=== PATIENT | female | born 1940 | race Two or more races ===

== ENCOUNTER → 2016-09-26 | Outpatient (CLI) | payer MEDICARE, OTHER ==
[~2016-09-26] MED LIST: ALBU8.5H3 INH; ASPI81TA3 PO; ATOR20TA38 PO; BENA10TA48 PO; DULO30CA45 PO; HUM100VI8 SQ; INSU100C SC; ISOS30TA5 PO; METF500T4 PO; METO25TA7 PO; METO5TAB11 PO; PANT40TA4 PO; TICA90TA PO
--- NOTE | 2016-09-26 13:02 | RADRPT ---
PROCEDURE: Retroperitoneal US. CLINICAL INDICATION: Hematuria TECHNIQUE: Multiple sonographic images of the kidneys and retroperitoneum were obtained. The imag es were reviewed on a PACS workstation. COMPARISON: 01/30/16 FINDINGS: The kidneys are normal in size, contour, cortical thickness and cortical echogenicity. The right kidney measures 11.8 cm. The left kidney measures 10.1 cm. There is a 4.9 x 4.5 cm simple cyst in the right kidney. No kidney stones are visualized. There is no evidence for hydronephrosis. The urinary bladder is normal. RPTAT: AA IMPRESSION: Simple cyst in the right kidney. No evidence of hydronephrosis. .Bobby Francois MD, MD Date Time Electronically viewed and signed by .Bobby Francois MD, MD on 09/26/2016 13:02 .S/
--- NOTE | 2016-09-26 16:21 | RADRPT ---
PROCEDURE: XR Knees. CLINICAL INDICATION: Bilateral knee pain. TECHNIQUE: Total of six views. Frontal, oblique, and lateral views of both knees. COMPARISON: No prior study is available for comparison. FINDINGS: There is no fracture or dislocation. The soft tissues are normal. There are degenerative changes with osteophytes arising from all 3 joint compartment margins bilater ally. There is bilateral medial joint compartment narrowing with left worse than right. There is no lytic or blastic lesion. There is no radiopaque foreign body. IMPRESSION: 1. Moderate degenerative changes of both knees with left worse than right. 2. No acute abnormality. RPTAT: QQ .Costa Salinas MD, MD Date Time Electronically viewed and signed by .Costa Salinas MD, MD on 09/26/2016 16:20 .R/
== END | disposition home or self-care (01) ==
LOC: U/S 12:18
PROVIDERS: ATTEND Internal Medicine Nephrology
DX: M25.561 Pain in right knee (principal); M25.562 Pain in left knee; R31.9 Hematuria, unspecified
CPT/HCPCS: 76775

== ENCOUNTER → 2017-01-21 | Outpatient (CLI) | payer MEDICARE, OTHER ==
[2017-01-21 13:28] LABS: BASOPHILS % 0.5 % (0.0-2.0); EOSINOPHILS # 0.2 10^3/ul (0.0-0.5); EOSINOPHILS % 2.3 % (0.0-7.0); HEMATOCRIT 39.4 % (37.0-47.0); HEMOGLOBIN 13.1 g/dl (12.0-16.0); LYMPHOCYTES # 2.1 10^3/ul (0.8-2.9); MEAN CORPUSCULAR HEMOGLOBIN 30.3 pg (29.0-33.0); MEAN CORPUSCULAR HGB CONC 33.2 g/dl (32.0-37.0); MONOCYTE # 0.3 10^3/ul (0.3-0.9); MONOCYTES % 4.1 % (0.0-11.0); NEUTROPHILS % 67.9 % (39.0-77.0); PLATELET COUNT 258 10^3/UL (140-415); RED BLOOD COUNT 4.33 10^6/ul (4.20-5.40); WHITE BLOOD COUNT 8.4 10^3/ul (4.8-10.8)
[2017-01-21 13:31] LABS: ADD UMIC NO; UR ASCORBIC ACID NEGATIVE (NEGATIVE); UR BILIRUBIN (Dip) NEGATIVE (NEGATIVE); UR BLOOD (Dip) NEGATIVE (NEGATIVE); UR CLARITY CLEAR (CLEAR); UR COLOR YELLOW (YELLOW); UR GLUCOSE (Dip) 1+ mg/dL (NEGATIVE); UR KETONES (Dip) NEGATIVE (NEGATIVE); UR LEUKOCYTE ESTERASE (Dip) NEGATIVE Leu/ul (NEGATIVE); UR NITRITE (Dip) NEGATIVE (NEGATIVE); UR TOTAL PROTEIN (Dip) NEGATIVE (NEGATIVE); UR UROBILINOGEN (Dip) NEGATIVE (NEGATIVE)
[2017-01-21 13:55] LABS: ALBUMIN 4.2 g/dl (3.3-4.9); ALBUMIN/GLOBULIN RATIO 1.31; BILIRUBIN,INDIRECT 0.7 mg/dl (0-1.1); BILIRUBIN,TOTAL 0.7 mg/dl (0.2-1.3); CALCIUM 9.5 mg/dl (8.4-10.2); CREATININE 0.61 mg/dl (0.44-1.00); POTASSIUM 4.5 mmol/L (3.5-5.1); TOTAL PROTEIN 7.4 g/dl (6.1-8.1)
== END | disposition home or self-care (01) ==
LOC: LAB 12:42
PROVIDERS: ATTEND Internal Medicine
DX: I10 Essential (primary) hypertension (principal); E11.9 Type 2 diabetes mellitus without complications; N39.0 Urinary tract infection, site not specified
CPT/HCPCS: 80053; 81003; 83036; 85025; 87086

== ENCOUNTER 2017-02-07 10:07 | Emergency (ER) | payer MEDICARE, OTHER ==
[~2017-02-07] VITALS: Ht 157.5 cm; Wt 66.0 kg
[~2017-02-07 10:07] MED LIST changes: +METO-335 PO; -METO25TA7 PO
[2017-02-07 10:11] VITALS: Ht 157.5 cm; Wt 66.0 kg
[2017-02-07 14:28] VITALS: TEMP 98.5
--- NOTE | 2017-02-07 14:47 | ERA ---
ER Documentation Chief Complaint Date/Time DATE: 02/07/17 TIME: 14:46 Chief Complaint Complains of chest pain since this pain HPI 77-year-old woman presents with chest discomfort 1 month. She states the discomfort is sometimes sharp sometimes pressure-like usually associated with "stress", which she states is caused by issues with her . She states he does not care about her issues and because of this feels anxious and stressed out. She states her symptoms are usually exacerbated by arguments or issues with her and have been going on for the last month. She denies chest pain at rest, no shortness of breath, no calf or leg swelling, no fevers or chills, no vomiting or diarrhea. Patient also complains of insomnia despite using zolpidem nightly ROS All systems reviewed and are negative except as per history of present illness. Medications Home Meds Active Scripts Metoclopramide Hcl* (Metoclopramide Hcl*) 5 Mg Tablet, 5 MG PO BEFORE MEALS for 30 Days, TAB Prov:ROLF BAILEY 01/31/16 Pantoprazole* (Pantoprazole*) 40 Mg Tablet.dr, 40 MG PO BID@06,18 for 30 Days Prov:ROLF BAILEY 01/31/16 Metoprolol Succinate* (Toprol XL*) 25 Mg Tab.sr.24h, 25 MG PO DAILY for CAD, HTN , #90 TAB Prov:MARINE CORRAL MD 02/14/15 Ticagrelor* (Brilinta*) 90 Mg Tablet, 90 MG PO BID, #60 Prov:MARINE CORRAL MD 02/14/15 Isosorbide Mononitrate* (Isosorbide Mononitrate*) 30 Mg Tabsr, 30 MG PO DAILY for Coronary artery disesae, HTN, #90 TAB Prov:MARINE CORRAL MD 02/14/15 Reported Medications Albuterol Sulfate* (Proair HFA*) 8.5 Gm Hfa.aer.ad, 2 PUFF INH Q4, #1 INHALER 01/26/16 Benazepril Hcl* (Benazepril Hcl*) 10 Mg Tablet, 10 MG PO DAILY, #30 TAB 01/26/16 Atorvastatin Calcium* (Atorvastatin Calcium*) 20 Mg Tablet, 20 MG PO QHS, #30 TAB 01/26/16 Metformin Hcl* (Metformin Hcl*) 500 Mg Tablet, 500 MG PO TID, TAB 09/26/14 Insulin Lispro (Humalog) 100 U/Ml Cartridge, 6 UNITS SC BID, EA 09/26/14 Hum Insulin Nph/Reg Insulin Hm (Humulin 70-30 Vial) 100 Units/Ml Vial, 16 SQ BID , VIAL 09/26/14 Aspirin (Aspirin) 81 Mg Chew, 81 MG PO DAILY 01/05/13 Duloxetine Hcl* (Cymbalta*) 30 Mg Capsule.dr, 30 MG PO BID 01/05/13 Allergies Allergies: Coded Allergies: No Known Allergy (Unverified , 01/26/16) PMhx/Soc Left ventricular ejection fraction of 70%, esophagitis gastritis, GERD, COPD, CAD status post mid left circumflex coronary artery stent, hyperlipidemia, hypertension, diabetes mellitus, depression History of Surgery: Yes (HYSTERECTOMY 4 YEARS AGO,STENT X2) Anesthesia Reaction: No Hx Neurological Disorder: No Hx Respiratory Disorders: Yes (ASTHMA,PNA,BRONCHITIS) Hx Cardiac Disorders: Yes (STENT PLACEMENT X2,HTN,CAD) Hx Psychiatric Problems: No Hx Miscellaneous Medical Probl: Yes (SHINGLES,VERTIGO,TENOSYNOVITIS, LT BUTTOCKS LECERATION REPAIR 12/25) Hx Alcohol Use: No Hx Substance Use: No Hx Tobacco Use: No Smoking Status: Never smoker Physical Exam Vitals Vital Signs Date Time Temp Pulse Resp B/P Pulse Ox O2 Delivery O2 Flow Rate FiO2 02/07/17 16:48 73 15 127/63 100 Room Air 02/07/17 14:28 98.5 72 18 147/62 99 Room Air 02/07/17 10:11 98.4 84 20 141/64 99 Physical Exam GENERAL: Well-developed, well-nourished, well-hydrated, in no apparent distress , looks nontoxic in appearance HEENT: Moist mucous membranes, pink conjunctiva, no cervical spine tenderness or step-off deformities, no goiter, no jaundice or icterus, extraocular movements intact without pain. No submandibular induration, and no pharyngeal erythema NEURO: Alert and oriented 3, cranial nerves II through XII intact bilaterally, pupils equal round reactive to light, no focal deficits or facial asymmetry, sensation intact distally Strength 5/5 in upper and lower extremities bilaterally CARDIAC: Regular rate and rhythm, no murmurs rubs or gallops LUNGS: Clear bilaterally no wheezing crackles or stridor ABDOMEN: Soft nontender, no guarding, no rigidity, no rebound, no psoas sign no obturator sign. Normoactive bowel sounds SKIN: Warm and dry to touch, no abrasions, contusions, or hematomas, no lacerations, no ecchymosis, no target lesions, and without ulcers EXTREMITIES: No clubbing cyanosis or edema, calves are bilaterally symmetrical, no Homans sign, no popliteal cord sign. Distal pulses equal and bilateral PSYCH: Normal affect without agitation or irritability Result Diagram: 02/07/17 1440 02/07/17 1440 Results 24 hrs Laboratory Tests Test 02/07/17 14:40 White Blood Count 10.010^3/ul Red Blood Count 4.5910^6/ul Hemoglobin 13.8g/dl Hematocrit 41.8% Mean Corpuscular Volume 91.1fl Mean Corpuscular Hemoglobin 30.1pg Mean Corpuscular Hemoglobin Concent 33.0g/dl Red Cell Distribution Width 13.1% Platelet Count 81890^3/UL Mean Platelet Volume 9.3fl Neutrophils % 63.3% Lymphocytes % 29.5% Monocytes % 4.9% Eosinophils % 1.4% Basophils % 0.6% Nucleated Red Blood Cells % 0.0/100WBC Neutrophils # 6.310^3/ul Lymphocytes # 3.010^3/ul Monocytes # 0.510^3/ul Eosinophils # 0.110^3/ul Basophils # 0.110^3/ul Nucleated Red Blood Cells # 0.010^3/ul Prothrombin Time 12.4Sec Prothrombin Time Ratio 1.0 INR International Normalized Ratio 0.92 Sodium Level 142mmol/L Potassium Level 4.3mmol/L Chloride Level 102mmol/L Carbon Dioxide Level 31mmol/L Anion Gap 13 Blood Urea Nitrogen 11mg/dl Creatinine 0.63mg/dl Glucose Level 151mg/dl Calcium Level 9.8mg/dl Total Bilirubin 0.8mg/dl Direct Bilirubin 0.00mg/dl Indirect Bilirubin 0.8mg/dl Aspartate Amino Transf (AST/SGOT) 21IU/L Alanine Aminotransferase (ALT/SGPT) 42IU/L Alkaline Phosphatase 79IU/L Troponin I < 0.012ng/ml B-Type Natriuretic Peptide 56PG/ML Total Protein 8.0g/dl Albumin 4.7g/dl Globulin 3.30g/dl Albumin/Globulin Ratio 1.42 Lipase 144U/L Current Medications Medications (Trade) Dose Ordered Sig/Gena Route PRN Reason Start Time Stop Time Status Last Admin Dose Admin Ketorolac Tromethamine (Toradol) 15 mg ONCE STAT IV 02/07/17 15:24 02/07/17 15:26 DC 02/07/17 15:33 Alprazolam (Xanax) 1 mg ONCE ONCE PO 02/07/17 15:30 02/07/17 15:31 DC 02/07/17 15:33 Procedures/MDM IV line was established patient was placed on lunchroom monitor rhythm strip revealed a sinus rhythm at about 70 bpm with upright P and T waves. Patient was afebrile. EKG performed, read by me: 70 bpm, normal sinus rhythm, normal axis, no acute ST segment changes, narrow QRS complex, with good R-wave progression in precordial leads. One AP view of the chest performed, read by me reveals no acute infiltrates, normal mediastinum, sharp costophrenic and cardiac borders, no air under the diaphragm. Otherwise unremarkable chest x-ray. Administered Toradol 15 mg IV and alprazolam 1 mg p.o. for her symptoms. CBC and electrolytes were normal, liver function tests are normal, troponin was negative. Patient's symptoms do not sound cardiac despite having strong cardiac history, I recommended she follow-up with her PMD for continued outpatient management, shoe may be also require psychologist or marriage counselor evaluation. Differential diagnoses considered, included but not limited to acute coronary syndrome, pulmonary embolism, aortic dissection, abdominal aortic aneurysm, sepsis, stroke, meningitis, encephalitis, pneumonia, appendicitis, cholecystitis , bowel obstruction, pyelonephritis, nephrolithiasis, cystitis, as well as metabolic, hematologic, and electrolyte abnormalities. As well as abscess, cellulitis, fractures, and dislocations. Patient feels much better at this time, and vital signs are normal, symptoms have improved. I did give strict instructions to return to the ED if symptoms continue or worsen, patient will otherwise follow-up with primary care physician. Patient understood instructions and agreed to plan. Disclaimer: Inadvertent spelling and grammatical errors are likely due to EHR/ dictation software use and do not reflect on the overall quality of patient care. Also, please note that the electronic time recorded on this note does not necessarily reflect the actual time of the patient encounter. Departure Diagnosis: Primary Impression: Chest pain Qualified Code: R07.9 - Chest pain, unspecified type Additional Impression: Insomnia Qualified Code: G47.00 - Insomnia, unspecified type Condition: NICOLETTE Leyva MD Feb 07, 2017 14:47
[2017-02-07] MEDS ORDERED: KETOROLAC 15 MG INJ IV STA (15:24)
[2017-02-07] MEDS ORDERED: ALPRAZOLAM 1 MG TAB PO ONE (15:30)
[2017-02-07 15:33] LABS: BASOPHIL # 0.1 10^3/ul (0.0-0.1); BASOPHILS % 0.6 % (0.0-2.0); EOSINOPHILS # 0.1 10^3/ul (0.0-0.5); EOSINOPHILS % 1.4 % (0.0-7.0); HEMATOCRIT 41.8 % (37.0-47.0); HEMOGLOBIN 13.8 g/dl (12.0-16.0); LYMPHOCYTES % 29.5 % (15.0-51.0); MEAN CORPUSCULAR HEMOGLOBIN 30.1 pg (29.0-33.0); MEAN CORPUSCULAR VOLUME 91.1 fl (82.0-101.0); MEAN PLATELET VOLUME 9.3 fl (7.4-10.4); MONOCYTE # 0.5 10^3/ul (0.3-0.9); MONOCYTES % 4.9 % (0.0-11.0); NEUTROPHIL # 6.3 10^3/ul (1.6-7.5); NEUTROPHILS % 63.3 % (39.0-77.0); PLATELET COUNT 298 10^3/UL (140-415); RED BLOOD COUNT 4.59 10^6/ul (4.20-5.40); RED CELL DISTRIBUTION WIDTH 13.1 % (11.5-14.5)
[2017-02-07 15:35] LABS: INR 0.92; PROTIME 12.4 Sec (12.2-14.2)
[2017-02-07 15:38] LABS: ALANINE AMINOTRANSFERASE 42 IU/L (13-69); ALBUMIN 4.7 g/dl (3.3-4.9); ALBUMIN/GLOBULIN RATIO 1.42; ALKALINE PHOSPHATASE 79 IU/L (42-121); ANION GAP 13 (8-16); ASPARTATE AMINO TRANSFERASE 21 IU/L (15-46); BILIRUBIN,INDIRECT 0.8 mg/dl (0-1.1); BILIRUBIN,TOTAL 0.8 mg/dl (0.2-1.3); BLOOD UREA NITROGEN 11 mg/dl (7-20); CALCIUM 9.8 mg/dl (8.4-10.2); CARBON DIOXIDE 31 mmol/L (21-31); CHLORIDE 102 mmol/L (97-110); CREATININE 0.63 mg/dl (0.44-1.00); GLUCOSE 151 mg/dl (70-220); POTASSIUM 4.3 mmol/L (3.5-5.1); SODIUM 142 mmol/L (135-144)
--- NOTE | 2017-02-07 15:44 | RADRPT ---
PROCEDURE: XR Chest. CLINICAL INDICATION: Chest pain. TECHNIQUE: Single frontal view. COMPARISON: 01/26/2016. FINDINGS: The lungs are clear. The heart size is normal. There is calcification in the aorta consistent with atherosclerosis. There is no pleural effusion. There is no pneumothorax. IMPRESSION: 1. Atherosclerosis. 2. Otherwise normal chest x-ray. RPTAT: QQ .Costa Salinas MD, MD Date Time Electronically viewed and signed by .Costa Salinas MD, MD on 02/07/2017 15:44 .R/
[2017-02-07 15:47] LABS: B-TYPE NATRIURETIC PEPTIDE 56 PG/ML (0-450)
[2017-02-07 16:00] LABS: TROPONIN-I < 0.012 ng/ml (0.00-0.12)
[2017-02-07 16:48] VITALS: BP 127/63; PULSE 73; RESP 15
[2017-02-07] MEDS ORDERED: ALPR0.5T PO (17:21)
== END 2017-02-07 17:23 | disposition home or self-care (01) ==
LOC: E/R 10:07
DX: R07.89 Other chest pain (principal); G47.00 Insomnia, unspecified; J44.9 Chronic obstructive pulmonary disease, unspecified; I25.10 Atherosclerotic heart disease of native coronary artery without angina pectoris; I10 Essential (primary) hypertension; E11.9 Type 2 diabetes mellitus without complications; R06.02 Shortness of breath; Z98.61 Coronary angioplasty status; Z79.4 Long term (current) use of insulin; Z79.82 Long term (current) use of aspirin
CPT/HCPCS: 36415; 71010; 80053; 83690; 83880; 84484; 85025; 85610; 93005; 96374; 99285; J1885

== ENCOUNTER 2017-08-04 05:49 | Day surgery (SDC) | END 2017-08-04 14:10 | disposition home or self-care (01) ==

== ENCOUNTER → 2018-01-10 | Outpatient (CLI) | END | disposition home or self-care (01) ==

== ENCOUNTER → 2018-02-09 | Outpatient (CLI) | END | disposition home or self-care (01) ==

== ENCOUNTER 2018-06-09 11:32 | Day surgery (SDC) | payer MEDICARE, OTHER ==
[~2018-06-09] VITALS: Ht 157.5 cm; Wt 68.0 kg
[~2018-06-09 11:32] MED LIST changes: -ALBU8.5H3 INH; +ALBU8.5H8 INH; +ASPI-831 PO; -ASPI81TA3 PO; -BENA10TA48 PO; +DEXILANT PO; -DULO30CA45 PO; +GABAPENTIN PO; -ISOS30TA5 PO; +ISOS30TA67 PO; +METF500T24 PO; -METF500T4 PO; -METO5TAB11 PO; -PANT40TA4 PO
[2018-06-09 12:47] VITALS: Ht 157.5 cm; Wt 68.0 kg
--- NOTE | 2018-06-09 13:04 | PREAC ---
Date/Time of Note Date/Time of Note DATE: 06/09/18 TIME: 13:03 Anesthesia Eval and Record Evaluation Time Pre-Procedure Interview DATE: 06/09/18 TIME: 13:03 Age 78 Sex female NPO: 8 hrs Preoperative diagnosis pain, GERD Planned procedure EGD Past Medical History Past Medical History: Includes Cardio: HTN, Dyslipidemia Endo: Diabetes Surgery & Anesthesia Issues No known issue Meds Anticoagulation: No Beta Meera within 24 hr: Yes Active Scripts Metoprolol Succinate* (Toprol XL*) 25 Mg Tab.sr.24h, 25 MG PO DAILY for CAD, H TN, #90 TAB Prov:MARINE CORRAL MD 02/14/15 Ticagrelor* (Brilinta*) 90 Mg Tablet, 90 MG PO BID, #60 Prov:MARINE CORRAL MD 02/14/15 Isosorbide Mononitrate* (Isosorbide Mononitrate*) 30 Mg Tabsr, 30 MG PO DAILY for Coronary artery disesae, HTN, #90 TAB Prov:MARINE CORRAL MD 02/14/15 Reported Medications [Gabapentin] No Conflict Check, PO 08/04/17 [Dexilant] No Conflict Check, PO 08/04/17 Albuterol Sulfate* (Proair HFA*) 8.5 Gm Hfa.aer.ad, 2 PUFF INH Q4, #1 INHALER 01/26/16 Atorvastatin Calcium* (Atorvastatin Calcium*) 20 Mg Tablet, 20 MG PO QHS, #30 TAB 01/26/16 Metformin Hcl* (Metformin Hcl*) 500 Mg Tablet, 500 MG PO TID, TAB 09/26/14 Insulin Lispro (Humalog) 100 U/Ml Cartridge, 6 UNITS SC BID, EA 09/26/14 Hum Insulin Nph/Reg Insulin Hm (Humulin 70-30 Vial) 100 Units/Ml Vial, 16 SQ BID, VIAL 09/26/14 Aspirin (Aspirin) 81 Mg Chew, 81 MG PO DAILY 01/05/13 Meds reviewed: Yes Allergies Coded Allergies: No Known Allergy (Unverified , 01/26/16) Allergies Reviewed: Yes Labs/Studies Labs Reviewed: Reviewed by anesthesiologist test: N/A Studies: ECG (n/a), CXR (n/a) Pre-procedure Exam Airway: Adequate mouth opening Mallampati: Mallampati I Teeth: Normal Lung: Normal Heart: Normal ASA Physical Status ASA physical status: 2 Emergency: None Planned Anesthetic General/MAC: MAC Planned Pain Management Parenteral pain med Pre-operative Attestations Prior to commencing anesthesia and surgery, the patient was re-evaluated, there was verification of: *The patient's identity *The results of appropriate recent lab work and preoperative vital signs *The above evaluation not changing prior to induction *Anesthetic plan, risk benefits, alternative and complications discussed with patient/family; questions answered; patient/family understands, accepts and wishes to proceed. MUNIR CARVALHO MD Jun 09, 2018 13:04
[2018-06-09 13:06] VITALS: BP 149/72; PULSE 63; RESP 19
[2018-06-09] MEDS ORDERED: INSULIN SC (13:09)
[2018-06-09] MEDS ORDERED: RANI300T3 PO (13:09)
[2018-06-09] MEDS ORDERED: ONDANSETRON 4 MG INJ IV PRN (13:30)
[2018-06-09 13:58] VITALS: BP 169/74; PULSE 68; RESP 12
--- NOTE | 2018-06-09 18:17 | PAC ---
Date/Time of Note Date/Time of Note DATE: 06/09/18 TIME: 18:16 Post-Anesthesia Notes Post-Anesthesia Note Last documented vital signs Vital Signs Date Temp Pulse Resp B/P (MAP) Pulse Ox O2 O2 Flow FiO2 Time Delivery Rate 06/09/18 98 68 12 169/74 98 Room Air 13:58 (105) 06/09/18 98.0 13:06 Activity: WNL Respiratory function: WNL Cardiovascular function: WNL Mental status: Baseline Pain reasonably controlled: Yes Hydration appropriate: Yes Nausea/Vomiting absent: No MUNIR CARVALHO MD Jun 09, 2018 18:16
--- NOTE | 2018-06-10 14:07 | CONS ---
DATE OF ADMISSION: 06/09/2018 DATE OF CONSULTATION: PATIENT NAME: MARIELLE ROSE TYPE OF CONSULTATION: Preoperative gastroenterology. Dear Dr. Clark: I thank you very much for this kind referral. HISTORY OF PRESENT ILLNESS: Ms. Marielle Rose is a 78-year-old female patient who has been referred to me for further evaluation of upper abdominal pain. The patient states she had upper abdominal triston n, which is not responding to therapy. The patient is known to have had gastritis and gastroesophage al reflux disease. She has been taking Dexilant and Zantac. She does not take any nonsteroidal anti -inflammatory agents. Her appetite has been good and there is no history of significant weight loss. PAST MEDICAL HISTORY: The patient has history of colon polyps. She had colonoscopy 1 year ago and n o colon neoplasm was identified. No history of gallstones or liver disease. Not a hypertensive. Powell s diabetes. No heart disease. Has bronchial asthma. No kidney disease. Status post surgery for ec topic and hysterectomy. SOCIAL HISTORY: Nonsmoker. No alcohol abuse. FAMILY HISTORY: No family history of gastrointestinal tract neoplasm. ALLERGIES: NO DRUG ALLERGIES. MEDICATIONS: 1. Dexilant 60 mg p.o. daily. 2. Zantac 300 mg p.o. daily. 3. Metformin 500 mg p.o. b.i.d. 4. Insulin 35 units subcutaneously every day. PHYSICAL EXAMINATION: VITAL SIGNS: She is 5 feet, 2 inches tall and weighs 151 pounds, BMI 28, blood pressure 134/72. HEART: Normal heart sounds. LUNGS: Clear. ABDOMEN: Soft. No masses. Normal bowel sounds. NEUROLOGIC: Normal. IMPRESSION: 1. Upper abdominal pain, not responding to therapy with Dexilant and Zantac. 2. Gastritis and gastroesophageal reflux disease. 3. History of colon polyps. 4. The patient had colonoscopy 1 year ago and no colon neoplasm was identified. 5. Diabetes mellitus. 6. Bronchial asthma. 7. Status post surgery for ectopic and hysterectomy. 8. Elevated body mass index. PLAN: 1. The patient was advised to lose weight. 2. Follow up with the primary MD for the management of elevated BMI and hypertension. 3. Endoscopic examination and abdominal ultrasound for further evaluation. The procedure and possible complications are well explained to the patient. She understands and cons ents to the procedure. I thank you once again. With warmest personal regards, Dictated By: ISAAC KELLY/MILTON Conf#: [id number] DID#: [id number]
== END 2018-06-09 14:25 | disposition home or self-care (01) ==
LOC: GIL 11:32
PROVIDERS: ATTEND Internal Medicine Gastroenterology
DX: K31.9 Disease of stomach and duodenum, unspecified (principal); K44.9 Diaphragmatic hernia without obstruction or gangrene; K21.9 Gastro-esophageal reflux disease without esophagitis; E11.9 Type 2 diabetes mellitus without complications; J45.909 Unspecified asthma, uncomplicated; Z79.4 Long term (current) use of insulin; Z79.84 Long term (current) use of oral hypoglycemic drugs
CPT/HCPCS: 82962; 88305; 88312

== ENCOUNTER 2018-10-24 17:23 | Emergency (ER) | payer MEDICARE, OTHER ==
[~2018-10-24] VITALS: Ht 157.5 cm; Wt 71.3 kg
[~2018-10-24 17:23] MED LIST changes: -GABAPENTIN PO; -HUM100VI8 SQ; -INSU100C SC; +INSULIN SC; +RANI300T3 PO
[2018-10-24 17:30] VITALS: Ht 157.5 cm; Wt 71.3 kg
[2018-10-24] MEDS ORDERED: ALBUTEROL 0.083% (NEB) 2.5 MG/3 ML AMP HHN STA (17:43)
[2018-10-24] MEDS ORDERED: IPRATROPIUM (NEB) 0.5 MG/2.5 ML AMP HHN ONE (18:00)
[2018-10-24] MEDS ORDERED: AZIT250T PO (18:45)
[2018-10-24] MEDS ORDERED: PRED20TA PO (18:45)
--- NOTE | 2018-10-24 18:48 | ERD ---
ER Documentation Chief Complaint Chief Complaint cough , chest congestion x 3 days HPI 78-year-old female presents with wheezing and coughing productive mucus for the last 3 days. She is using albuterol inhaler at home. She has a history of diabetes. She denies chest pain, vomiting, abdominal pain. ROS All systems reviewed and are negative except as per history of present illness. Medications Home Meds Active Scripts Prednisone* (Prednisone*) 20 Mg Tab, 40 MG PO DAILY for 4 Days, TAB Start October 25, 2018 Prov:AVTAR SIERRA MD 10/24/18 Azithromycin* (Zithromax*) 250 Mg Tablet, 250 MG PO .ZPACK DIRECTED, #6 TAB TAKE 500 MG (2 TABS) THE FIRST DAY THEN 250 MG (1 TAB) DAYS 2-5 Prov:AVTAR SIERRA MD 10/24/18 Metoprolol Succinate* (Toprol XL*) 25 Mg Tab.sr.24h, 25 MG PO DAILY for CAD, HTN, #90 TAB Prov:MARINE CORRAL MD 02/14/15 Ticagrelor* (Brilinta*) 90 Mg Tablet, 90 MG PO BID, #60 Prov:MARINE CORRAL MD 02/14/15 Isosorbide Mononitrate* (Isosorbide Mononitrate*) 30 Mg Tabsr, 30 MG PO DAILY for Coronary artery disesae, HTN, #90 TAB Prov:MARINE CORRAL MD 02/14/15 Reported Medications [Insulin] No Conflict Check, 35 SC DAILY 06/09/18 Ranitidine Hcl* (Zantac*) 300 Mg Tablet, 300 MG PO HS, #30 TAB 06/09/18 [Dexilant] No Conflict Check, PO 08/04/17 Albuterol Sulfate* (Proair HFA*) 8.5 Gm Hfa.aer.ad, 2 PUFF INH Q4, #1 INHALER 01/26/16 Atorvastatin Calcium* (Atorvastatin Calcium*) 20 Mg Tablet, 20 MG PO QHS, #30 TAB 01/26/16 Metformin Hcl* (Metformin Hcl*) 500 Mg Tablet, 500 MG PO TID, TAB 09/26/14 Aspirin (Aspirin) 81 Mg Chew, 81 MG PO DAILY 01/05/13 Allergies Allergies: Coded Allergies: No Known Allergy (Unverified , 06/09/18) PMhx/Soc History of Surgery: Yes (EGD,COLON, CARDIAC STENT, HYSTERECTOMY, ECTOPIC ) Anesthesia Reaction: No Hx Neurological Disorder: No Hx Respiratory Disorders: Yes (BRONCHIAL ASTHMA (LAST INHALER USE 1 YR AGO)) Hx Cardiac Disorders: Yes (HTN, VESSEL BLOCKAGE-STENT, NO C/O CP) Hx Psychiatric Problems: No Hx Miscellaneous Medical Probl: Yes (HIGH CHOLESTEROL) Hx Alcohol Use: Yes (RARELY) Hx Substance Use: No Hx Tobacco Use: No (>50 YRS AGO) Smoking Status: Former smoker FmHx Family History: No diabetes, No coronary disease, No other Physical Exam Vitals Vital Signs Date Temp Pulse Resp B/P (MAP) Pulse Ox O2 O2 Flow FiO2 Time Delivery Rate 10/24/18 89 20 99 21 18:16 10/24/18 98.3 85 18 121/59 99 17:30 (79) Physical Exam Const: No acute distress Head: Atraumatic Eyes: Normal Conjunctiva ENT: Normal External Ears, Nose and Mouth. TMs and oropharynx normal. Neck: Full range of motion. No meningismus. Resp: Clear to auscultation bilaterally. Diffuse coarse breath sounds and wheezing. No rales or retractions appreciated. Cardio: Regular rate and rhythm, no murmurs Abd: Soft, non tender, non distended. Normal bowel sounds Skin: No petechiae or rashes Back: No midline or flank tenderness Ext: No cyanosis, or edema Neur: Awake and alert Psych: Normal Mood and Affect Results 24 hrs Laboratory Tests Test 10/24/18 17:48 Bedside Glucose 225 mg/dL Current Medications Medications Dose Sig/Gena Start Time Status Last (Trade) Ordered Route PRN Stop Time Admin Dose Reason Admin Albuterol 5 mg ONCE STAT 10/24/18 DC 10/24/18 (Proventil HHN 17:43 18:12 0.083% (Neb)) 10/24/18 17:45 Ipratropium 1 mg ONCE ONCE 10/24/18 DC 10/24/18 [place] HHN 18:00 18:12 (Atrovent 10/24/18 18:01 0.02% (Neb)) 12 mg ONCE ONCE 10/24/18 Dexamethasone PO 19:00 (Decadron) 10/24/18 19:01 Procedures/MDM Chest X-ray 1V Interpreted by me: Soft Tissue: No acute abnormalities Bones: No acute abnormalities Mediastinum/Cardiac Silhouette/Lungs: No acute abnormalities. Impression- normal 1 view chest x-ray Butyryl and Atrovent treatment. Patient had clear lungs on serial exam without rales, wheezing or retractions. Patient was given Decadron 12 mg by mouth. Patient presents with signs of wheezing and productive cough for last 3 days. Will treat empirically with Zithromax, short course of prednisone, continuation of albuterol, primary care follow-up and return precautions. Patient was advised to drink clear fluids and monitor blood sugar while taking steroids. Blood sugars 224 today. She has no signs of DKA. The patient was stable with no new complaints during the ER course. Clinically, there is no current evidence to suggest meningitis, sepsis, acute abdomen, pneumonia, stroke, acute coronary syndrome, pulmonary embolism, aortic dissection or any other emergent condition appearing to require further evaluation or hospitalization. Patient counseled regarding my diagnostic impression and care plan. Prior to discharge all questions answered. Pt agrees with treatment plan and understands strict return precautions. Pt is instructed to follow up with primary care provider within 24-48 hours. Precautionary instructions provided including instructions to return to the ER if not improving or for any worsening or changing symptoms or concerns. Disclaimer: Inadvertent spelling and grammatical errors are likely due to EHR/dictation software use and do not reflect on the overall quality of patient care. Also, please note that the electronic time recorded on this note does not necessarily reflect the actual time of the patient encounter. Departure Diagnosis: Primary Impression: Asthma Asthma severity: unspecified severity Asthma persistence: unspecified Asthma complication type: unspecified Qualified Codes: J45.909 - Unspecified asthma, uncomplicated Additional Impression: Chest congestion Condition: Stable Patient Instructions: Bronchitis With Wheezing (Adult) Additional Instructions: Drink plenty of fluids at home and monitor blood sugar. Recheck for fevers, chest pain, vomiting, abdominal pain, new or worsening symptoms. Continue albuterol at home. AVTAR SIERRA MD Oct 24, 2018 18:48
[2018-10-24] MEDS ORDERED: DEXAMETHASONE 4 MG TAB PO ONE (19:00)
[2018-10-24 19:16] VITALS: BP 137/63; PULSE 91; RESP 17
[2018-10-25] MEDS ORDERED: HYDR-843 PO (19:37)
[2018-10-25] MEDS ORDERED: PRED20TA PO (19:49)
== END 2018-10-24 19:16 | disposition home or self-care (01) ==
LOC: FTE 17:23
DX: J45.901 Unspecified asthma with (acute) exacerbation (principal); I10 Essential (primary) hypertension; Z79.4 Long term (current) use of insulin; Z79.82 Long term (current) use of aspirin; Z87.891 Personal history of nicotine dependence; Z98.61 Coronary angioplasty status
CPT/HCPCS: 71045; 82962; 94664

== ENCOUNTER 2018-10-25 17:16 | Emergency (ER) | payer MEDICARE, OTHER ==
[~2018-10-25] VITALS: Ht 165.1 cm; Wt 72.0 kg
[~2018-10-25 17:16] MED LIST changes: +AZIT250T PO; +PRED20TA PO
[2018-10-25 17:36] VITALS: BP 103/53; PULSE 75; RESP 22; Ht 165.1 cm; Wt 72.0 kg
[2018-10-25] MEDS ORDERED: ALBUTEROL 0.083% (NEB) 2.5 MG/3 ML AMP HHN STA (18:29)
[2018-10-25] MEDS ORDERED: hydrOXYzine HCL 25 MG TAB PO ONE (18:30)
[2018-10-25] MEDS ORDERED: IPRATROPIUM (NEB) 0.5 MG/2.5 ML AMP HHN ONE (18:30)
--- NOTE | 2018-10-25 18:33 | ERD ---
ER Documentation Chief Complaint Chief Complaint COUGH WITH SOB, CLEAR LUNG SOUNDS & LEFT EYE SCRATCH BY BOX HPI 78-year-old female with history of asthma, returns to the emergency department, 24 hours after being seen here for acute exacerbation. The patient is complaining of generalized itching and dry skin for 2 weeks, She is also persistent complaining of productive cough but no wheezing or shortness of breath contrary to what is said on chief complaint. The patient refers good compliance to medications that include prednisone and azithromycin. No side effects. ROS All systems reviewed and are negative except as per history of present illness. Medications Home Meds Active Scripts Prednisone* (Prednisone*) 20 Mg Tab, 40 MG PO DAILY for 4 Days, TAB Start October 25, 2018 Prov:AVTAR SIERRA MD 10/24/18 Azithromycin* (Zithromax*) 250 Mg Tablet, 250 MG PO .ZPACK DIRECTED, #6 TAB TAKE 500 MG (2 TABS) THE FIRST DAY THEN 250 MG (1 TAB) DAYS 2-5 Prov:AVTAR SIERRA MD 10/24/18 Metoprolol Succinate* (Toprol XL*) 25 Mg Tab.sr.24h, 25 MG PO DAILY for CAD, HTN, #90 TAB Prov:MARINE CORRAL MD 02/14/15 Ticagrelor* (Brilinta*) 90 Mg Tablet, 90 MG PO BID, #60 Prov:MARINE CORRAL MD 02/14/15 Isosorbide Mononitrate* (Isosorbide Mononitrate*) 30 Mg Tabsr, 30 MG PO DAILY for Coronary artery disesae, HTN, #90 TAB Prov:MARINE CORRAL MD 02/14/15 Reported Medications [Insulin] No Conflict Check, 35 SC DAILY 06/09/18 Ranitidine Hcl* (Zantac*) 300 Mg Tablet, 300 MG PO HS, #30 TAB 06/09/18 [Dexilant] No Conflict Check, PO 08/04/17 Albuterol Sulfate* (Proair HFA*) 8.5 Gm Hfa.aer.ad, 2 PUFF INH Q4, #1 INHALER 01/26/16 Atorvastatin Calcium* (Atorvastatin Calcium*) 20 Mg Tablet, 20 MG PO QHS, #30 TAB 01/26/16 Metformin Hcl* (Metformin Hcl*) 500 Mg Tablet, 500 MG PO TID, TAB 09/26/14 Aspirin (Aspirin) 81 Mg Chew, 81 MG PO DAILY 01/05/13 Allergies Allergies: Coded Allergies: No Known Allergy (Unverified , 06/09/18) PMhx/Soc History of Surgery: Yes (EGD,COLON, CARDIAC STENT, HYSTERECTOMY, ECTOPIC ) Anesthesia Reaction: No Hx Neurological Disorder: No Hx Respiratory Disorders: Yes (BRONCHIAL ASTHMA (LAST INHALER USE 1 YR AGO)) Hx Cardiac Disorders: Yes (HTN, VESSEL BLOCKAGE-STENT, NO C/O CP) Hx Psychiatric Problems: No Hx Miscellaneous Medical Probl: Yes (HIGH CHOLESTEROL) Hx Alcohol Use: Yes (RARELY) Hx Substance Use: No Hx Tobacco Use: No (>50 YRS AGO) FmHx Family History: No diabetes, No coronary disease Physical Exam Vitals Vital Signs Date Temp Pulse Resp B/P (MAP) Pulse Ox O2 O2 Flow FiO2 Time Delivery Rate 10/25/18 78 20 97 21 18:56 10/25/18 98.0 75 22 103/53 100 17:36 (70) Physical Exam Const: No acute distress Head: Atraumatic Eyes: Normal Conjunctiva ENT: Normal External Ears, Nose and Mouth. Neck: Full range of motion. No meningismus. Resp: Clear to auscultation bilaterally Cardio: Regular rate and rhythm, no murmurs Abd: Soft, non tender, non distended. Normal bowel sounds Skin: No petechiae or rashes Back: No midline or flank tenderness Ext: No cyanosis, or edema Neur: Awake and alert Psych: Normal Mood and Affect Results 24 hrs Current Medications Medications Dose Sig/Gena Start Time Status Last (Trade) Ordered Route PRN Stop Time Admin Dose Reason Admin Hydroxyzine 25 mg ONCE ONCE 10/25/18 DC 10/25/18 HCl PO 18:30 19:00 (Atarax) 10/25/18 18:32 Albuterol 5 mg ONCE STAT 10/25/18 DC 10/25/18 (Proventil HHN 18:29 18:56 0.083% (Neb)) 10/25/18 18:32 Ipratropium 0.5 mg ONCE ONCE 10/25/18 DC 10/25/18 [place] HHN 18:30 18:56 (Atrovent 10/25/18 18:32 0.02% (Neb)) Patient: ADALID ROSE : 1940 Age: 78 Sex: F [facility] [id number] [id number] DOS: 10/24/18 1743 Ordering MD: AVTAR SIERRA MD Location: [facility] Room/Bed: PROCEDURE: XR Chest. CLINICAL INDICATION: Shortness of breath TECHNIQUE: A single AP view of the chest was obtained. COMPARISON: DR CHEST 02/07/2017; CASS CHEST 01/26/2016; CR CHEST 09/26/2014; CR CHEST 08/10/2013; CR CHEST 05/16/2012 FINDINGS: No focal airspace opacification, pleural effusion or pneumothorax is seen. The cardiomediastinal silhouette is within normal limits for size. The osseous structures are unremarkable. IMPRESSION: Unremarkable chest x-ray. Procedures/MDM Vital signs stable, no evidence of respiratory distress, differential diagnosis include but not limited to: Respiratory infection bacterial/viral/fungal. Asthma, COPD, pneumonitis, allergies, GERD. Less cardiac related, aspiration pneumonia, malignancy. Physical examination and clinical presentation consistent most likely with cough and pruritus, currently, the patient is taking azithromycin, prednisone and albuterol MDI prescribed yesterday. During the ED course the patient remained stable, no new complaints. Treatment options and clinical impression discussed with patient who agrees with management. The patient is stable to be treated outpatient and will be discharged home with a Rx for hydroxyzine. Some side effects of prescribed medications (headache, rash, nausea, vomiting, diarrhea, interactions with other medications) were reviewed. The patient was informed that the evaluation in the emergency department has been done to rule out an acute emergency, therefore, chronic conditions like malignancy or other diseases have not been evaluated; therefore, the patient was instructed to follow up with the primary care provider in the next 48h. If symptoms persist, worsen or new symptoms develop, then patient should return to the ED immediately. Disclaimer: Inadvertent spelling and grammatical errors are likely due to EHR/dictation software use and do not reflect on the overall quality of patient care. Also, please note that the electronic time recorded on this note does not necessarily reflect the actual time of the patient encounter. Departure Diagnosis: Primary Impression: Cough Additional Impression: Pruritus Condition: Stable Additional Instructions: Thank you very much for allowing us to participate in your care. Your health and safety is our top priority at [facility]. The evaluation in the emergency department has been done to rule out an acute emergency. Chronic, gfm-[id number] conditions may have not been evaluated; therefore, you need to follow up with a primary care provider in the next 48h. If symptoms persist, worsen or new symptoms develop, then patient should return to the ED immediately. Call your primary care doctor TOMORROW for an appointment during the next 2-4 days and bring all the information provided. Have prescriptions filled and follow precisely the directions on the label. If the symptoms get worse and your provider is unavailable, return to the Emergency Department immediately. SABRINA LYLES MD Oct 25, 2018 18:33
[2018-10-25] MEDS ORDERED: HYDR-843 PO (19:37)
[2018-10-25] MEDS ORDERED: PRED20TA PO (19:49)
== END 2018-10-25 19:52 | disposition home or self-care (01) ==
LOC: FTE 17:16
DX: R05 Cough (principal); L29.9 Pruritus, unspecified; I10 Essential (primary) hypertension; J45.909 Unspecified asthma, uncomplicated; E11.9 Type 2 diabetes mellitus without complications; Z79.82 Long term (current) use of aspirin; Z79.84 Long term (current) use of oral hypoglycemic drugs
CPT/HCPCS: 94664

== ENCOUNTER 2018-10-26 00:23 | Inpatient (IN) | payer MEDICARE, OTHER ==
[~2018-10-26] VITALS: Ht 157.5 cm; Wt 71.1 kg
[~2018-10-26 00:23] MED LIST changes: +HYDR-843 PO
[2018-10-26 00:36] VITALS: Ht 157.5 cm; Wt 71.1 kg
[2018-10-26] MEDS ORDERED: morphine 2 MG INJ IV STA (03:06)
[2018-10-26] MEDS ORDERED: ALBUTEROL 0.083% (NEB) 2.5 MG/3 ML AMP NEB STA (03:06)
[2018-10-26] MEDS ORDERED: IPRATROPIUM (NEB) 0.5 MG/2.5 ML AMP NEB STA (03:06)
[2018-10-26] MEDS ORDERED: ONDANSETRON 4 MG INJ IV STA (03:06)
[2018-10-26] MEDS ORDERED: ONDANSETRON 4 MG INJ IV PRN ×2 (05:30→10:00)
[2018-10-26] MEDS ORDERED: ACETAMINOPHEN 325 MG TAB PO PRN (05:30)
[2018-10-26] MEDS ORDERED: METHYLPREDNISOLONE 125 MG INJ IV STA (05:43)
--- NOTE | 2018-10-26 05:49 | ERD ---
ER Documentation Chief Complaint Chief Complaint cough for a few days. was here/dc'd at 10 pm. still has persistent cough HPI This is a 78-year female is been in 3 times for a progressively worsening cough over the past 3 days. Denies fevers chills. Denies nausea vomiting. She does complain of shortness of breath especially on exertion. Denies any leg swelling. She has a cough is mildly productive. ROS All systems reviewed and are negative except as per history of present illness. Medications Home Meds Active Scripts Prednisone* (Prednisone*) 20 Mg Tab, 40 MG PO DAILY for 5 Days, TAB Prov:SABRINA LYLES MD 10/25/18 Hydroxyzine Hcl* (Hydroxyzine Hcl*) 25 Mg Tablet, 25 MG PO TID, #30 TAB Prov:SABRINA LYLES MD 10/25/18 Prednisone* (Prednisone*) 20 Mg Tab, 40 MG PO DAILY for 4 Days, TAB Start October 25, 2018 Prov:AVTAR SIERRA MD 10/24/18 Azithromycin* (Zithromax*) 250 Mg Tablet, 250 MG PO .ZPACK DIRECTED, #6 TAB TAKE 500 MG (2 TABS) THE FIRST DAY THEN 250 MG (1 TAB) DAYS 2-5 Prov:AVTAR SIERRA MD 10/24/18 Metoprolol Succinate* (Toprol XL*) 25 Mg Tab.sr.24h, 25 MG PO DAILY for CAD, HTN, #90 TAB Prov:MARINE CORRAL MD 02/14/15 Ticagrelor* (Brilinta*) 90 Mg Tablet, 90 MG PO BID, #60 Prov:MARINE CORRAL MD 02/14/15 Isosorbide Mononitrate* (Isosorbide Mononitrate*) 30 Mg Tabsr, 30 MG PO DAILY for Coronary artery disesae, HTN, #90 TAB Prov:MARINE CORRAL MD 02/14/15 Reported Medications [Insulin] No Conflict Check, 35 SC DAILY 06/09/18 Ranitidine Hcl* (Zantac*) 300 Mg Tablet, 300 MG PO HS, #30 TAB 06/09/18 [Dexilant] No Conflict Check, PO 08/04/17 Albuterol Sulfate* (Proair HFA*) 8.5 Gm Hfa.aer.ad, 2 PUFF INH Q4, #1 INHALER 01/26/16 Atorvastatin Calcium* (Atorvastatin Calcium*) 20 Mg Tablet, 20 MG PO QHS, #30 TAB 01/26/16 Metformin Hcl* (Metformin Hcl*) 500 Mg Tablet, 500 MG PO TID, TAB 09/26/14 Aspirin (Aspirin) 81 Mg Chew, 81 MG PO DAILY 01/05/13 Allergies Allergies: Coded Allergies: No Known Allergy (Unverified , 06/09/18) PMhx/Soc History of Surgery: Yes (EGD,COLON, CARDIAC STENT, HYSTERECTOMY, ECTOPIC ) Anesthesia Reaction: No Hx Neurological Disorder: No Hx Respiratory Disorders: Yes (COPD, BRONCHIAL ASTHMA (LAST INHALER USE 1 YR AGO)) Hx Cardiac Disorders: Yes (HTN, VESSEL BLOCKAGE-STENT, NO C/O CP) Hx Psychiatric Problems: No Hx Miscellaneous Medical Probl: Yes (HIGH CHOLESTEROL) Hx Alcohol Use: Yes (RARELY) Hx Substance Use: No Hx Tobacco Use: No (>50 YRS AGO) Smoking Status: Former smoker Physical Exam Vitals Vital Signs Date Temp Pulse Resp B/P (MAP) Pulse Ox O2 O2 Flow FiO2 Time Delivery Rate 10/26/18 104 18 120/52 99 Room Air 04:42 (74) 10/26/18 98 22 97 21 03:22 10/26/18 99.1 98 24 162/121 100 Room Air 03:04 (135) 10/26/18 99.6 86 18 143/81 100 00:36 (101) Physical Exam Const: No acute distress Head: Atraumatic Eyes: Normal Conjunctiva ENT: Normal External Ears, Nose and Mouth. Neck: Full range of motion. No meningismus. Resp: Clear to auscultation bilaterally Cardio: Regular rate and rhythm, no murmurs Abd: Soft, non tender, non distended. Normal bowel sounds Skin: No petechiae or rashes Back: No midline or flank tenderness Ext: No cyanosis, or edema Neur: Awake and alert Psych: Normal Mood and Affect Result Diagram: 10/26/1831810/26/189 Results 24 hrs Laboratory Tests Test 10/26/18 03:19 White Blood Count 11.4 10^3/ul Red Blood Count 4.13 10^6/ul Hemoglobin 12.2 g/dl Hematocrit 37.8 % Mean Corpuscular Volume 91.5 fl Mean Corpuscular Hemoglobin 29.5 pg Mean Corpuscular Hemoglobin Concent 32.3 g/dl Red Cell Distribution Width 13.2 % Platelet Count 248 10^3/UL Mean Platelet Volume 9.0 fl Immature Granulocytes % 0.300 % Neutrophils % 81.2 % Lymphocytes % 16.4 % Monocytes % 1.6 % Eosinophils % 0.4 % Basophils % 0.1 % Nucleated Red Blood Cells % 0.0 /100WBC Immature Granulocytes # 0.030 10^3/ul Neutrophils # 9.2 10^3/ul Lymphocytes # 1.9 10^3/ul Monocytes # 0.2 10^3/ul Eosinophils # 0.1 10^3/ul Basophils # 0.0 10^3/ul Nucleated Red Blood Cells # 0.0 10^3/ul Sodium Level 143 mmol/L Potassium Level 3.9 mmol/L Chloride Level 104 mmol/L Carbon Dioxide Level 30 mmol/L Anion Gap 9 Blood Urea Nitrogen 13 mg/dl Creatinine 0.64 mg/dl Est Glomerular Filtrat Rate mL/min mL/min Glucose Level 82 mg/dl Calcium Level 8.8 mg/dl Total Bilirubin 0.5 mg/dl Direct Bilirubin 0.00 mg/dl Indirect Bilirubin 0.5 mg/dl Aspartate Amino Transf (AST/SGOT) 30 IU/L Alanine Aminotransferase (ALT/SGPT) 38 IU/L Alkaline Phosphatase 75 IU/L Troponin I < 0.012 ng/ml B-Type Natriuretic Peptide 238 PG/ML Total Protein 7.4 g/dl Albumin 4.1 g/dl Globulin 3.30 g/dl Albumin/Globulin Ratio 1.24 Current Medications Medications Dose Sig/Gena Start Time Status Last (Trade) Ordered Route PRN Stop Time Admin Dose Reason Admin Morphine 2 mg ONCE STAT 10/26/18 DC 10/26/18 Sulfate IV 03:06 03:17 (morphine) 10/26/18 03:08 Ondansetron 4 mg ONCE STAT 10/26/18 DC 10/26/18 HCl (Zofran IV 03:06 03:17 Inj) 10/26/18 03:08 Albuterol 5 mg ONCE STAT 10/26/18 DC 10/26/18 (Proventil NEB 03:06 03:22 0.083% (Neb)) 10/26/18 03:08 Ipratropium 0.5 mg ONCE STAT 10/26/18 DC 10/26/18 Trion NEB 03:06 03:22 (Atrovent 10/26/18 03:08 0.02% (Neb)) Ondansetron 4 mg BRIDGE ORDER 10/26/18 HCl (Zofran PRN IV 05:30 Inj) NAUSEA/VOMITI 10/27/18 05:29 NG 650 mg ER BRIDGE 10/26/18 Acetaminophen PRN PO 05:30 (Tylenol .MILD PAIN 10/27/18 05:29 Tab) 1-3 OR TEMP Procedures/MDM EKG: Rate/Rhythm: [Normal Sinus Rhythm] QRS, ST, T-waves: [No changes consistent w/ acute ischemia] Impression: [No evidence of ischemia or arrhythmia] Chest X-ray 1V Interpreted by me: Soft Tissue: No acute abnormalities Bones: No acute abnormalities Mediastinum/Cardiac Silhouette/Lungs: [No acute abnormalities] Patient's respiratory symptoms have not responded to normal outpatient therapy and will require inpatient workup, monitoring, and treatment. Accepting Care Team: Current data and ongoing care discussed. Time: 5:30 AM Primary Provider: Dr. Griffith who is on-call Consulting: [XOXOXO] Outstanding Data: none Departure Diagnosis: Primary Impression: Cough Condition: SUKHJINDER Singh Oct 26, 2018 05:49
[2018-10-26 07:45] VITALS: BP 110/53; PULSE 90; RESP 17
[2018-10-26] MEDS ORDERED: ALBUTEROL/IPRATROPIUM (NEB) 3 ML AMP HHN PRN (09:30)
[2018-10-26] MEDS ORDERED: GLUCOSE GEL 15 GRAM TUBE PO PRN ×2 (10:00)
[2018-10-26] MEDS ORDERED: DEXTROSE 50% 50 ML SYRINGE IV PRN ×2 (10:00)
[2018-10-26] MEDS ORDERED: GLUCAGON 1 MG INJ IM PRN (10:00)
[2018-10-26] MEDS ORDERED: GLUCOSE GEL 15 GRAM TUBE BUCCAL PRN (10:00)
[2018-10-26] MEDS: CEFTRIAXONE 1 GM/50 ML (PMX) 50 ML IVPB SCH (11:48)
[2018-10-26] MEDS: ALBUTEROL/IPRATROPIUM (NEB) 3 ML AMP HHN SCH ×3 (11:49→21:10)
[2018-10-26] MEDS: ENOXAPARIN 30 MG/0.3 ML SYG SC SCH (11:51)
[2018-10-26] MEDS: METHYLPREDNISOLONE 40 MG INJ IV SCH ×2 (11:52→20:46)
[2018-10-26] MEDS: metFORMIN 500 MG TAB PO SCH ×2 (11:53→17:22)
[2018-10-26] MEDS: INSULIN ASPART [NOVOLOG] 3 ML PEN SC SCH ×3 (13:21→21:02)
[2018-10-26] MEDS: NPH, HUMAN INSULIN ISOPHANE 3ML VIAL SC SCH ×2 (13:22→21:00)
--- NOTE | 2018-10-26 13:52 | HP ---
Date/Time of Note Date/Time of Note DATE: 10/26/18 TIME: 13:51 Assessment/Plan VTE Prophylaxis Pharmacological prophylaxis: LMWH Lines/Catheters IV Catheter Type (from [facility]): Saline Lock Assessment/Plan Assessment/Plan -Acute bronchitis, will obtain influenza swab, continue Rocephin, add Zithromax continue steroids and breathing treatment. Dr. Arango is asked to see patient in infection disease consultation. -Asthma, continue bronchodilators. -Coronary artery disease history of PCI and stent placement, continue Plavix. -Hypertension -Hyperlipidemia -Diabetes -GERD Further recommendations based on clinical course. Plan of care discussed with Dr. Clark. Result Diagram: 10/26/1831810/26/18 031 Results 24hrs Laboratory Tests Test 10/26/18 03:19 10/26/18 11:55 White Blood Count 11.4 H Red Blood Count 4.13 L Hemoglobin 12.2 Hematocrit 37.8 Mean Corpuscular Volume 91.5 Mean Corpuscular Hemoglobin 29.5 Mean Corpuscular Hemoglobin Concent 32.3 Red Cell Distribution Width 13.2 Platelet Count 248 Mean Platelet Volume 9.0 Immature Granulocytes % 0.300 Neutrophils % 81.2 H Lymphocytes % 16.4 Monocytes % 1.6 Eosinophils % 0.4 Basophils % 0.1 Nucleated Red Blood Cells % 0.0 Immature Granulocytes # 0.030 Neutrophils # 9.2 H Lymphocytes # 1.9 Monocytes # 0.2 L Eosinophils # 0.1 Basophils # 0.0 Nucleated Red Blood Cells # 0.0 Sodium Level 143 Potassium Level 3.9 Chloride Level 104 Carbon Dioxide Level 30 Anion Gap 9 Blood Urea Nitrogen 13 Creatinine 0.64 Est Glomerular Filtrat Rate mL/min Glucose Level 82 Calcium Level 8.8 Total Bilirubin 0.5 Direct Bilirubin 0.00 Indirect Bilirubin 0.5 Aspartate Amino Transf (AST/SGOT) 30 Alanine Aminotransferase (ALT/SGPT) 38 Alkaline Phosphatase 75 Troponin I < 0.012 B-Type Natriuretic Peptide 238 Total Protein 7.4 Albumin 4.1 Globulin 3.30 H Albumin/Globulin Ratio 1.24 Bedside Glucose 272 H HPI/ROS Admit Date/Time Admit Date/Time Oct 26, 2018 at 05:30 Hx of Present Illness Patient is 78 very pleasant female with history of coronary artery disease status post PCI to the mid left circumflex with drug-eluting stent in February [address] Davis, history of hypertension, hyperlipidemia, diabetes, asthma, GERD and depression. Stated that her was sick and she developed a productive cough 5 days ago for which she presented to the emergency room 3 times in a row. Patient's condition did not improve, she felt congested with productive cough and some shortness of breath. Patient denies chest pain, denies nausea vomiting diarrhea constipation. Patient is noted to have leukocytosis and low-grade fever on admission. Chest x-ray is negative for pneumonia. Patient is admitted for further evaluation and management. ROS 12 point review of system is negative except for what mentioned in HPI PMH/Family/Social Past Medical History Per HPI Medical History: diabetes, high cholesterol, hypertension Medications Current Medications Ondansetron HCl (Zofran Inj) 4 mg BRIDGE ORDER PRN IV NAUSEA/VOMITING; Start at 05:30; Stop 10/27/18 at 05:29 Acetaminophen (Tylenol Tab) 650 mg ER BRIDGE PRN PO .MILD PAIN 1-3 OR TEMP Last administered on 10/26/18at 06:20; Admin Dose 650 MG; Start 10/26/18 at 05:30; St op 10/27/18 at 05:29 Ceftriaxone Sodium 50 ml @ 100 mls/hr Q24H IVPB Last administered on 10/26/18 11:48; Admin Dose 100 MLS/HR; Start 10/26/18 at 09:30 Albuterol/ Ipratropium (Duoneb) 3 ml Q6H RESP THERAPY HHN Last administered on 10/26/18at 13:37; Admin Dose 3 ML; Start 10/26/18 at 09:30 Albuterol/ Ipratropium (Duoneb) 3 ml Q4H RESP THERAPY PRN HHN SHORTNESS OF BREATH; Start 10/26/18 at 09:30 Methylprednisolone Sodium Succinate (Solu-Medrol) 40 mg BID IV Last administered on 10/26/18at 11:52; Admin Dose 40 MG; Start 10/26/18 at 10:30 Insulin Human NPH (Humulin N) 14 unit BID SC Last administered on 10/26/18 13:22; Admin Dose 14 UNIT; Start 10/26/18 at 10:30 Insulin Aspart (Novolog Insulin Pen) NOVOLOG *MILD* ALGORITHM WITH MEALS BEDTIME SC Last administered on 6/17/19at 13:21; Admin Dose 3 UNIT; Start 10/26/18 at 12:00 Enoxaparin Sodium (Lovenox) 30 mg DAILY SC Last administered on 10/26/18at 11:51; Admin Dose 30 MG; Start 10/26/18 at 09:30 Metformin HCl (Glucophage) 500 mg WITH MEALS PO Last administered on 10/26/18at 11:53; Admin Dose 500 MG; Start 10/26/18 at 11:30 Miscellaneous Information 1 ea NOTE XX ; Start 10/26/18 at 10:00 Glucose (Glutose) 15 gm Q15M PRN PO DECREASED GLUCOSE; Start 10/26/18 at 10:00 Glucose (Glutose) 22.5 gm Q15M PRN PO DECREASED GLUCOSE; Start 10/26/18 at 10:00 Dextrose (D50w Syringe) 25 ml Q15M PRN IV DECREASED GLUCOSE; Start 10/26/18 at 10:00 Dextrose (D50w Syringe) 50 ml Q15M PRN IV DECREASED GLUCOSE; Start 10/26/18 at 10:00 Glucagon (Glucagen) 1 mg Q15M PRN IM DECREASED GLUCOSE; Start 10/26/18 at 10:00 Glucose (Glutose) 15 gm Q15M PRN BUCCAL DECREASED GLUCOSE; Start 10/26/18 at 10:00 Acetaminophen (Tylenol Tab) 650 mg Q6H PRN PO MILD PAIN(1-3)OR ELEVATED TEMP; Start 10/26/18 at 10:00 Ondansetron HCl (Zofran Inj) 4 mg Q6H PRN IV NAUSEA AND/OR VOMITING; Start 10/26/18 at 10:00 Coded Allergies: No Known Allergy (Unverified , 06/09/18) Past Surgical History Past Surgical Hx: other (Status post PCI and stent placement to left circumflex in 2014, status post hysterectomy many years ago.) Family History Significant Family History: no pertinent family hx Social History Alcohol Use: none Smoking Status: Former smoker Drug Use: none Exam/Review of Systems Vital Signs Vitals Vital Signs Date Temp Pulse Resp B/P (MAP) Pulse Ox O2 O2 Flow FiO2 Time Delivery Rate 10/26/18 79 20 96 21 13:38 10/26/18 99.5 113/78 Room Air 06:56 (90) Exam Constitutional: alert, oriented Neck: supple Respiratory: diminished breath sounds, other (Congested, productive cough) Cardiovascular: nl pulses Gastrointestinal: soft, non-tender Musculoskeletal: nl extremities to inspection Extremities: normal pulses Neurological: nl mental status ROLF BAILEY Oct 26, 2018 13:52
[2018-10-26 14:29] VITALS: BP 113/56; PULSE 96; RESP 17
[2018-10-26 19:35] VITALS: BP 140/63; PULSE 87; RESP 17
[2018-10-26] MEDS: ACETAMINOPHEN 325 MG TAB PO PRN (20:49)
[2018-10-26] MEDS: SENNA TAB PO SCH (22:38)
[2018-10-26] MEDS: ZOLPIDEM 5 MG TAB PO PRN (22:39)
--- NOTE | 2018-10-26 23:47 | CONS ---
DATE OF ADMISSION: 10/26/2018 DATE OF CONSULTATION: 10/26/2018 TYPE OF CONSULTATION: Infectious Disease. REASON FOR CONSULTATION: Antibiotic management. HISTORY OF PRESENT ILLNESS: The patient is a 78-year-old female who comes in with a persistent cough which has lasted for a few days. The patient has been to the emergency room 3 times for progressive cough over the last 3 days. She complains of shortness of breath on exertion. She denies any leg s welling. The cough is mildly productive. PAST MEDICAL HISTORY: Her past problems include: 1. COPD. 2. Bronchial asthma, last inhaler used a year ago. 3. Hypertension. 4. Vessel blockage with a stent. 5. Hypercholesterolemia. 6. Status post cardiac stents. 7. Hysterectomy. 8. Ectopic . 9. She had EGD and colonoscopy. FAMILY HISTORY: Noncontributory. SOCIAL HISTORY: She is a former smoker, but has not smoked in 50 years. She rarely drinks. She smith s not abuse drugs. ALLERGIES: NONE TO PENICILLIN, SULFA, OR FOODS. MEDICATIONS: Per chart. REVIEW OF SYSTEMS: As per HPI. PHYSICAL EXAMINATION: GENERAL: The patient is a well-developed, well-nourished female who is alert, responsive, in no acut e distress. VITAL SIGNS: Stable. She is afebrile. SKIN: Without generalized rash. HEENT: Within normal limits. NECK: Supple. LYMPH NODES: None palpable. CHEST: Decreased breath sounds at the bases. HEART: Without murmur or gallop. ABDOMEN: Soft, nontender, without organosplenomegaly or masses. EXTREMITIES: Without cyanosis, clubbing, or edema. RECTAL AND GENITAL: Exams deferred. NEUROLOGIC: No focal neurological abnormality. LABORATORY DATA: White count 11.4, H and H 12.2 and 37.8, platelet count 248,000. BUN and creatinin e 13/0.64. Random glucose 82. She has 81% neutrophils with a white count of 11.4. IMAGING DATA: The patient's chest x-ray shows no acute abnormalities. HOSPITAL COURSE: The patient was seen by nurse practitioner, Pati. She felt she had acute bron chitis, obtained influenza swab. Continue Rocephin and azithromycin. Continue steroids and breathin g treatments. Infectious disease called for consultation. Asthma. Continue bronchodilators. She i s on Plavix for her PCI and stent placement. White count 11.4. Chest x-ray: No acute process is se en within the chest, mild aortic atherosclerotic calcifications. IMPRESSION AND PLAN: We will continue her on her current regimen of azithromycin and ceftriaxone. I will dictate my findings to Dr. Blanton and to Nurse Practitioner Pati. Dictated By: JUDITH CLARK MD, JD/MILTON Conf#: [id number] DID#: [id number] CC: BECKY BLANTON MD;*EndCC*
[2018-10-27] MEDS: ALBUTEROL/IPRATROPIUM (NEB) 3 ML AMP HHN SCH ×4 (01:59→20:13)
[2018-10-27 02:53] VITALS: BP 122/58; PULSE 95; RESP 17
[2018-10-27 07:31] VITALS: BP 136/65; PULSE 79; RESP 18
[2018-10-27] MEDS: INSULIN ASPART [NOVOLOG] 3 ML PEN SC SCH ×4 (08:00→20:43)
[2018-10-27] MEDS: metFORMIN 500 MG TAB PO SCH ×3 (08:26→17:34)
[2018-10-27] MEDS: NPH, HUMAN INSULIN ISOPHANE 3ML VIAL SC SCH ×2 (08:42→20:42)
[2018-10-27] MEDS: METHYLPREDNISOLONE 40 MG INJ IV SCH ×2 (08:49→20:40)
[2018-10-27] MEDS: SENNA TAB PO SCH ×2 (08:49→20:40)
[2018-10-27] MEDS: ACETAMINOPHEN 325 MG TAB PO PRN ×2 (08:53→20:40)
[2018-10-27] MEDS: ENOXAPARIN 30 MG/0.3 ML SYG SC SCH (08:53)
[2018-10-27] MEDS: CEFTRIAXONE 1 GM/50 ML (PMX) 50 ML IVPB SCH (08:53)
[2018-10-27 14:00] VITALS: BP 159/77; PULSE 106; RESP 18
--- NOTE | 2018-10-27 15:08 | CONS ---
Assessment/Plan Assessment/Plan Hospital Course (Demo Recall) Patient is alert feels better looks comfortable family at bedside, no fevers overnight she is still coughing but markedly improved WBC 10.9 neutrophils 88.9 BUN 15 creatinine 0.56 Antimicrobials: Rocephin Physical examination: Well-developed elderly woman who is alert in no distress. Head atraumatic normocephalic neck is supple chest rise symmetrical breath sounds clear heart S1-S2 abdomen soft bowel sounds present extremities without cyanosis Assessment: 1. Acute asthmatic bronchitis 2. Hypertension 3. Coronary artery disease with a history of cardiac stents Plan: Patient is doing better, continue antibiotics steroids bronchodilators Consultation Date/Type/Reason Admit Date/Time Oct 27, 2018 at 08:31 Initial Consult Date Type of Consult id Date/Time of Note DATE: 10/27/18 TIME: 15:08 Exam/Review of Systems Exam Vitals Vital Signs Date Temp Pulse Resp B/P (MAP) Pulse Ox O2 O2 Flow FiO2 Time Delivery Rate 10/27/18 98.1 106 18 159/77 94 Room Air 14:00 (104) 10/27/18 21 09:25 Intake and Output 10/26/18 10/26/18 10/27/18 1515:00 23:00 07:00 IntakeIntake Total 50 ml 400 ml BalanceBalance 50 ml 400 ml Results Result Diagram: 10/27/18 0436 10/27/18 0436 Results 24hrs Laboratory Tests Test 10/26/18 17:24 10/26/18 20:56 10/27/18 04:36 10/27/18 08:22 Bedside Glucose 250 H 229 H 103 White Blood Count 10.9 H Red Blood Count 4.12 L Hemoglobin 11.8 L Hematocrit 37.5 Mean Corpuscular 91.0 Volume Mean Corpuscular 28.6 L Hemoglobin Mean Corpuscular 31.5 L Hemoglobin Concent Red Cell 13.3 Distribution Width Platelet Count 256 Mean Platelet Volume 9.7 Immature 0.300 Granulocytes % Neutrophils % 88.9 H Lymphocytes % 8.5 L Monocytes % 2.2 Eosinophils % 0.0 Basophils % 0.1 Nucleated Red Blood 0.0 Cells % Immature 0.030 Granulocytes # Neutrophils # 9.7 H Lymphocytes # 0.9 Monocytes # 0.2 L Eosinophils # 0.0 Basophils # 0.0 Nucleated Red Blood 0.0 Cells # Sodium Level 141 Potassium Level 4.3 Chloride Level 103 Carbon Dioxide Level 29 Anion Gap 9 Blood Urea Nitrogen 15 Creatinine 0.56 Est Glomerular Filtrat Rate mL/min Glucose Level 154 Calcium Level 9.1 Test 10/27/18 12:10 Bedside Glucose 191 Medications Medication Current Medications Ceftriaxone Sodium 50 ml @ 100 mls/hr Q24H IVPB Last administered on 10/27/18 08:53; Admin Dose 100 MLS/HR; Start 10/26/18 at 09:30 Albuterol/ Ipratropium (Duoneb) 3 ml Q6H RESP THERAPY HHN Last administered on 10/27/18 09:25; Admin Dose 3 ML; Start 10/26/18 at 09:30 Albuterol/ Ipratropium (Duoneb) 3 ml Q4H RESP THERAPY PRN HHN SHORTNESS OF BREATH; Start 10/26/18 at 09:30 Methylprednisolone Sodium Succinate (Solu-Medrol) 40 mg BID IV Last administered on 10/27/18at 08:49; Admin Dose 40 MG; Start 10/26/18 at 10:30 Insulin Human NPH (Humulin N) 14 unit BID SC Last administered on 10/27/18at 08:42; Admin Dose 14 UNIT; Start 10/26/18 at 10:30 Insulin Aspart (Novolog Insulin Pen) NOVOLOG *MILD* ALGORITHM WITH MEALS BEDTIME SC Last administered on 10/27/18at 12:13; Admin Dose 2 UNIT; Start 10/26/18 at 12:00 Enoxaparin Sodium (Lovenox) 30 mg DAILY SC Last administered on 10/27/18 08:53; Admin Dose 30 MG; Start 10/26/18 at 09:30 Metformin HCl (Glucophage) 500 mg WITH MEALS PO Last administered on 10/27/18at 12:12; Admin Dose 500 MG; Start 10/26/18 at 11:30 Miscellaneous Information 1 ea NOTE XX ; Start 10/26/18 at 10:00 Glucose (Glutose) 15 gm Q15M PRN PO DECREASED GLUCOSE; Start 10/26/18 at 10:00 Glucose (Glutose) 22.5 gm Q15M PRN PO DECREASED GLUCOSE; Start 10/26/18 at 10:00 Dextrose (D50w Syringe) 25 ml Q15M PRN IV DECREASED GLUCOSE; Start 10/26/18 at 10:00 Dextrose (D50w Syringe) 50 ml Q15M PRN IV DECREASED GLUCOSE; Start 10/26/18 at 10:00 Glucagon (Glucagen) 1 mg Q15M PRN IM DECREASED GLUCOSE; Start 10/26/18 at 10:00 Glucose (Glutose) 15 gm Q15M PRN BUCCAL DECREASED GLUCOSE; Start 10/26/18 at 10:00 Acetaminophen (Tylenol Tab) 650 mg Q6H PRN PO MILD PAIN(1-3)OR ELEVATED TEMP Last administered on 10/27/18at 08:53; Admin Dose 650 MG; Start 10/26/18 at 10:00 Ondansetron HCl (Zofran Inj) 4 mg Q6H PRN IV NAUSEA AND/OR VOMITING; Start 10/26/18 at 10:00 Zolpidem Tartrate (Ambien) 5 mg HS PRN PO INSOMNIA Last administered on 10/26/18at 22:39; Admin Dose 5 MG; Start 10/26/18 at 22:30 Senna (Senokot) 1 tab BID PO Last administered on 10/27/18at 08:49; Admin Dose 1 TAB; Start 10/26/18 at 22:30 ALIE TOLEDO NP Oct 27, 2018 15:08
--- NOTE | 2018-10-27 16:37 | PN ---
Date/Time of Note Date/Time of Note DATE: 10/27/18 TIME: 16:31 Assessment/Plan VTE Prophylaxis Risk score (from Ns)>0 risk: 3 SCD applied (from Ns): Yes Pharmacological prophylaxis: LMWH Lines/Catheters IV [facility]from [facility] Urinary Cath still in place: No Assessment/Plan Hospital Course Patient complains of productive cough, denies any chest pain denies shortness of breath. Assessment/Plan -Acute bronchitis, will obtain influenza swab, continue Rocephin, steroids and breathing treatment. Dr. Arango is following in infection disease consultation. -Asthma, continue bronchodilators. -Coronary artery disease history of PCI and stent placement, continue Plavix. Patient followed with Dr. Davis as an outpatient. -Hypertension -Hyperlipidemia -Diabetes -GERD Further recommendations based on clinical course. Plan of care discussed with Dr. Clark. Result Diagram: 10/27/18 0436 10/27/18 0436 Results 24hrs Laboratory Tests Test 10/26/18 17:24 10/26/18 20:56 10/27/18 04:36 10/27/18 08:22 Bedside Glucose 250 H 229 H 103 White Blood Count 10.9 H Red Blood Count 4.12 L Hemoglobin 11.8 L Hematocrit 37.5 Mean Corpuscular 91.0 Volume Mean Corpuscular 28.6 L Hemoglobin Mean Corpuscular 31.5 L Hemoglobin Concent Red Cell 13.3 Distribution Width Platelet Count 256 Mean Platelet Volume 9.7 Immature 0.300 Granulocytes % Neutrophils % 88.9 H Lymphocytes % 8.5 L Monocytes % 2.2 Eosinophils % 0.0 Basophils % 0.1 Nucleated Red Blood 0.0 Cells % Immature 0.030 Granulocytes # Neutrophils # 9.7 H Lymphocytes # 0.9 Monocytes # 0.2 L Eosinophils # 0.0 Basophils # 0.0 Nucleated Red Blood 0.0 Cells # Sodium Level 141 Potassium Level 4.3 Chloride Level 103 Carbon Dioxide Level 29 Anion Gap 9 Blood Urea Nitrogen 15 Creatinine 0.56 Est Glomerular Filtrat Rate mL/min Glucose Level 154 Calcium Level 9.1 Test 10/27/18 12:10 Bedside Glucose 191 Exam/Review of Systems Exam Vitals Vital Signs Date Temp Pulse Resp B/P (MAP) Pulse Ox O2 O2 Flow FiO2 Time Delivery Rate 10/27/18 95 20 95 21 15:10 10/27/18 98.1 159/77 Room Air 14:00 (104) Intake and Output 10/26/18 10/26/18 10/27/18 1515:00 23:00 07:00 IntakeIntake Total 50 ml 400 ml BalanceBalance 50 ml 400 ml Exam Constitutional: alert, oriented Neck: supple Respiratory: diminished breath sounds, other (Congested, productive cough) Cardiovascular: nl pulses Gastrointestinal: soft, non-tender Musculoskeletal: nl extremities to inspection Extremities: normal pulses Neurological: nl mental status Results Results 24hrs Laboratory Tests Test 10/26/18 17:24 10/26/18 20:56 10/27/18 04:36 10/27/18 08:22 Bedside Glucose 250 H 229 H 103 White Blood Count 10.9 H Red Blood Count 4.12 L Hemoglobin 11.8 L Hematocrit 37.5 Mean Corpuscular 91.0 Volume Mean Corpuscular 28.6 L Hemoglobin Mean Corpuscular 31.5 L Hemoglobin Concent Red Cell 13.3 Distribution Width Platelet Count 256 Mean Platelet Volume 9.7 Immature 0.300 Granulocytes % Neutrophils % 88.9 H Lymphocytes % 8.5 L Monocytes % 2.2 Eosinophils % 0.0 Basophils % 0.1 Nucleated Red Blood 0.0 Cells % Immature 0.030 Granulocytes # Neutrophils # 9.7 H Lymphocytes # 0.9 Monocytes # 0.2 L Eosinophils # 0.0 Basophils # 0.0 Nucleated Red Blood 0.0 Cells # Sodium Level 141 Potassium Level 4.3 Chloride Level 103 Carbon Dioxide Level 29 Anion Gap 9 Blood Urea Nitrogen 15 Creatinine 0.56 Est Glomerular Filtrat Rate mL/min Glucose Level 154 Calcium Level 9.1 Test 10/27/18 12:10 Bedside Glucose 191 Medications Medication Current Medications Ceftriaxone Sodium 50 ml @ 100 mls/hr Q24H IVPB Last administered on 10/27/18at 08:53; Admin Dose 100 MLS/HR; Start 10/26/18 at 09:30 Albuterol/ Ipratropium (Duoneb) 3 ml Q6H RESP THERAPY HHN Last administered on 10/27/18at 15:10; Admin Dose 3 ML; Start 10/26/18 at 09:30 Albuterol/ Ipratropium (Duoneb) 3 ml Q4H RESP THERAPY PRN HHN SHORTNESS OF BREATH; Start 10/26/18 at 09:30 Methylprednisolone Sodium Succinate (Solu-Medrol) 40 mg BID IV Last administered on 10/27/18at 08:49; Admin Dose 40 MG; Start 10/26/18 at 10:30 Insulin Human NPH (Humulin N) 14 unit BID SC Last administered on 10/27/18at 08:42; Admin Dose 14 UNIT; Start 10/26/18 at 10:30 Insulin Aspart (Novolog Insulin Pen) NOVOLOG *MILD* ALGORITHM WITH MEALS BEDTIME SC Last administered on 10/27/18at 12:13; Admin Dose 2 UNIT; Start 10/26/18 at 12:00 Enoxaparin Sodium (Lovenox) 30 mg DAILY SC Last administered on 10/27/18 08:53; Admin Dose 30 MG; Start 10/26/18 at 09:30 Metformin HCl (Glucophage) 500 mg WITH MEALS PO Last administered on 10/27/18at 12:12; Admin Dose 500 MG; Start 10/26/18 at 11:30 Miscellaneous Information 1 ea NOTE XX ; Start 10/26/18 at 10:00 Glucose (Glutose) 15 gm Q15M PRN PO DECREASED GLUCOSE; Start 10/26/18 at 10:00 Glucose (Glutose) 22.5 gm Q15M PRN PO DECREASED GLUCOSE; Start 10/26/18 at 10:00 Dextrose (D50w Syringe) 25 ml Q15M PRN IV DECREASED GLUCOSE; Start 10/26/18 at 10:00 Dextrose (D50w Syringe) 50 ml Q15M PRN IV DECREASED GLUCOSE; Start 10/26/18 at 10:00 Glucagon (Glucagen) 1 mg Q15M PRN IM DECREASED GLUCOSE; Start 10/26/18 at 10:00 Glucose (Glutose) 15 gm Q15M PRN BUCCAL DECREASED GLUCOSE; Start 10/26/18 at 10:00 Acetaminophen (Tylenol Tab) 650 mg Q6H PRN PO MILD PAIN(1-3)OR ELEVATED TEMP Last administered on 10/27/18at 08:53; Admin Dose 650 MG; Start 10/26/18 at 10:00 Ondansetron HCl (Zofran Inj) 4 mg Q6H PRN IV NAUSEA AND/OR VOMITING; Start 10/26/18 at 10:00 Zolpidem Tartrate (Ambien) 5 mg HS PRN PO INSOMNIA Last administered on 10/26/18at 22:39; Admin Dose 5 MG; Start 10/26/18 at 22:30 Senna (Senokot) 1 tab BID PO Last administered on 10/27/18at 08:49; Admin Dose 1 TAB; Start 10/26/18 at 22:30 Clopidogrel Bisulfate (plaVIX) 75 mg DAILY PO ; Start 10/27/18 at 16:30; Status UNROLF TOTH Oct 27, 2018 16:37
[2018-10-27] MEDS: CLOPIDOGREL 75 MG TAB PO SCH (17:34)
[2018-10-27 18:29] VITALS: BP 148/78; PULSE 96
[2018-10-27 19:38] VITALS: BP 144/67; PULSE 91; RESP 17
[2018-10-27] MEDS: HYDROCODONE/HOMATROPINE 5ML CUP PO PRN (22:39)
[2018-10-27] MEDS: ZOLPIDEM 5 MG TAB PO PRN (23:39)
[2018-10-28 02:02] VITALS: BP 144/85; PULSE 73; RESP 18
[2018-10-28] MEDS: ALBUTEROL/IPRATROPIUM (NEB) 3 ML AMP HHN SCH ×4 (02:26→20:15)
[2018-10-28] MEDS: HYDROCODONE/HOMATROPINE 5ML CUP PO PRN (04:25)
[2018-10-28 07:59] VITALS: BP 141/64; PULSE 73; RESP 18
[2018-10-28] MEDS: SENNA TAB PO SCH ×2 (09:01→20:45)
[2018-10-28] MEDS: CLOPIDOGREL 75 MG TAB PO SCH (09:01)
[2018-10-28] MEDS: METHYLPREDNISOLONE 40 MG INJ IV SCH ×2 (09:02→20:45)
[2018-10-28] MEDS: metFORMIN 500 MG TAB PO SCH ×3 (09:02→17:23)
[2018-10-28] MEDS: ENOXAPARIN 30 MG/0.3 ML SYG SC SCH (09:05)
[2018-10-28] MEDS: NPH, HUMAN INSULIN ISOPHANE 3ML VIAL SC SCH ×2 (09:05→20:50)
[2018-10-28] MEDS: INSULIN ASPART [NOVOLOG] 3 ML PEN SC SCH ×4 (09:05→20:50)
[2018-10-28] MEDS: CEFTRIAXONE 1 GM/50 ML (PMX) 50 ML IVPB SCH (09:06)
[2018-10-28 14:57] VITALS: BP 149/72; PULSE 87; RESP 18
--- NOTE | 2018-10-28 15:40 | CONS ---
Assessment/Plan Assessment/Plan Hospital Course (Demo Recall) Feels better Antimicrobials: Rocephin Physical examination: Well-developed elderly woman who is alert in no distress. Head atraumatic normocephalic neck is supple chest rise symmetrical breath sounds clear heart S1-S2 abdomen soft bowel sounds present extremities without cyanosis Assessment: 1. Acute asthmatic bronchitis 2. Hypertension 3. Coronary artery disease with a history of cardiac stents Plan: Patient is doing better, ok dc on oral Levaquin for 4 more days Consultation Date/Type/Reason Admit Date/Time Oct 27, 2018 at 08:31 Initial Consult Date Type of Consult id Date/Time of Note DATE: 10/28/18 TIME: 15:39 Exam/Review of Systems Exam Vitals Vital Signs Date Temp Pulse Resp B/P (MAP) Pulse Ox O2 O2 Flow FiO2 Time Delivery Rate 10/28/18 98.4 87 18 149/72 97 Room Air 14:57 (97) 10/28/18 21 02:27 Intake and Output 10/27/18 10/27/18 10/28/18 1515:00 23:00 07:00 IntakeIntake Total 850 ml 400 ml BalanceBalance 850 ml 400 ml Results Result Diagram: 10/28/18 0550 10/28/18 0550 Results 24hrs Laboratory Tests Test 10/27/18 17:31 10/27/18 20:38 10/28/18 02:03 10/28/18 05:50 Bedside Glucose 220 192 192 White Blood Count 13.3 #H Red Blood Count 4.69 Hemoglobin 13.5 Hematocrit 41.8 Mean Corpuscular 89.1 Volume Mean Corpuscular 28.8 L Hemoglobin Mean Corpuscular 32.3 Hemoglobin Concent Red Cell 13.2 Distribution Width Platelet Count 314 # Mean Platelet Volume 9.3 Immature 0.800 H Granulocytes % Neutrophils % 84.1 H Lymphocytes % 12.1 L Monocytes % 2.9 Eosinophils % 0.0 Basophils % 0.1 Nucleated Red Blood 0.0 Cells % Immature 0.100 H Granulocytes # Neutrophils # 11.2 H Lymphocytes # 1.6 Monocytes # 0.4 Eosinophils # 0.0 Basophils # 0.0 Nucleated Red Blood 0.0 Cells # Sodium Level 142 Potassium Level 4.1 Chloride Level 99 Carbon Dioxide Level 27 Anion Gap 16 #H Blood Urea Nitrogen 15 Creatinine 0.59 Est Glomerular Filtrat Rate mL/min Glucose Level 234 H Calcium Level 9.7 Test 10/28/18 08:05 10/28/18 12:13 Bedside Glucose 208 179 Medications Medication Current Medications Ceftriaxone Sodium 50 ml @ 100 mls/hr Q24H IVPB Last administered on 10/28/18at 09:06; Admin Dose 100 MLS/HR; Start 10/26/18 at 09:30 Albuterol/ Ipratropium (Duoneb) 3 ml Q6H RESP THERAPY HHN Last administered on 10/28/18at 02:26; Admin Dose 3 ML; Start 10/26/18 at 09:30 Albuterol/ Ipratropium (Duoneb) 3 ml Q4H RESP THERAPY PRN HHN SHORTNESS OF BREATH; Start 10/26/18 at 09:30 Methylprednisolone Sodium Succinate (Solu-Medrol) 40 mg BID IV Last administered on 10/28/18 09:02; Admin Dose 40 MG; Start 10/26/18 at 10:30 Insulin Human NPH (Humulin N) 14 unit BID SC Last administered on 10/28/18 09 :05; Admin Dose 14 UNIT; Start 10/26/18 at 10:30 Insulin Aspart (Novolog Insulin Pen) NOVOLOG *MILD* ALGORITHM WITH MEALS BEDTIME SC Last administered on 10/28/18 12:14; Admin Dose 1 UNIT; Start at 12:00 Enoxaparin Sodium (Lovenox) 30 mg DAILY SC Last administered on 10/28/18 09:05; Admin Dose 30 MG; Start 10/26/18 at 09:30 Metformin HCl (Glucophage) 500 mg WITH MEALS PO Last administered on 10/28/18at 12:12; Admin Dose 500 MG; Start 10/26/18 at 11:30 Miscellaneous Information 1 ea NOTE XX ; Start 10/26/18 at 10:00 Glucose (Glutose) 15 gm Q15M PRN PO DECREASED GLUCOSE; Start 10/26/18 at 10:00 Glucose (Glutose) 22.5 gm Q15M PRN PO DECREASED GLUCOSE; Start 10/26/18 at 10:00 Dextrose (D50w Syringe) 25 ml Q15M PRN IV DECREASED GLUCOSE; Start 10/26/18 at 10:00 Dextrose (D50w Syringe) 50 ml Q15M PRN IV DECREASED GLUCOSE; Start 10/26/18 at 10:00 Glucagon (Glucagen) 1 mg Q15M PRN IM DECREASED GLUCOSE; Start 10/26/18 at 10:00 Glucose (Glutose) 15 gm Q15M PRN BUCCAL DECREASED GLUCOSE; Start 10/26/18 at 10:00 Acetaminophen (Tylenol Tab) 650 mg Q6H PRN PO MILD PAIN(1-3)OR ELEVATED TEMP Last administered on 10/27/18at 20:40; Admin Dose 650 MG; Start 10/26/18 at 10:00 Ondansetron HCl (Zofran Inj) 4 mg Q6H PRN IV NAUSEA AND/OR VOMITING; Start 10/26/18 at 10:00 Zolpidem Tartrate (Ambien) 5 mg HS PRN PO INSOMNIA Last administered on 10/27/18at 23:39; Admin Dose 5 MG; Start 10/26/18 at 22:30 Senna (Senokot) 1 tab BID PO Last administered on 10/28/18 09:01; Admin Dose 1 TAB; Start 10/26/18 at 22:30 Clopidogrel Bisulfate (plaVIX) 75 mg DAILY PO Last administered on 10/28/18 09:01; Admin Dose 75 MG; Start 10/27/18 at 16:30 Hydrocodone Bit/ Homatropine Methylb (Hycodan Liquid) 5 ml Q6H PRN PO COUGH Last administered on 10/28/18 04:25; Admin Dose 5 ML; Start 10/27/18 at 16:30 ALIE TOLEDO NP Oct 28, 2018 15:40
--- NOTE | 2018-10-28 16:30 | RADRPT ---
Echocardiogram Report Patient Name: DAMIAN ROSETYPatient ID: [id number] : 1940 (78y 10m)Study Date: 10/28/2018 11:23:06 AM Gender: FAccession #: [id number] Tech: Munira Peralta [facility] Location: [id number] Ref.Physician: ROLF BAILEY Height(Cm): BSA: Weight(Kg): Quality: AdequateOrder Physician: ROLF BAILEY Account #: Procedures: Echocardiographic Report: Transthoracic echocardiogram with complete 2D, M-Mode, and doppler examination. Indications: Evaluate Left Ventricular function. Measurements: 2D/M Mode Doppler Measurement Value Normal Range Measurement Value Normal Range LVIDd 2D 3.7 [ 3.8 - 5.2 ] cm AV Peak Giovanny 1.5 [ 100.0 - 170.0 ] cm/sec LVIDs 2D 1.6 [ 2.2 - 3.5 ] cm AV Peak PG 9.0 [ 2.0 - 9.0 ] mmHg LVPWd 2D 1.0 [ 0.6 - 0.9 ] cm LVOT Peak Giovanny 1.1 [ 70.0 - 110.0 ] cm/sec IVSd 2D 1.0 [ 0.6 - 0.9 ] cm LVOT Peak PG 4.0 [ 2.0 - 6.0 ] mmHg IVS/LVPW 2D 1.0 ratio MV E Peak Giovanny 0.9 [ 60.0 - 130.0 ] cm/sec AoR Diam 2D 2.5 [ 2.3 - 3.1 ] cm MV A Peak Giovanny 1.0 [ 100.0 - 120.0 ] cm/sec LA/Ao 2D 1 ratio MV E/A 0.9 [ 0.8 - 1.5 ] ratio LA Dimen 2D 2.5 [ 2.7 - 3.8 ] cm MV Decel Time 236 [ 104 - 258 ] msec Lat E` Giovanny 0.1 [ 10.0 - 15.0 ] cm/sec MV E/A 0.9 [ 0.8 - 1.5 ] ratio TR Peak Giovanny 2.4 [ 100.0 - 280.0 ] cm/sec TR Peak PG 24.0 mmHg RVSP 27.0 [ 10.0 - 36.0 ] mmHg RA Pressure 3.0 mmHg Findings: Left Ventricle: Normal left ventricular systolic function. Normal left ventricular cavity size. Mild concentric left ventricular hypertrophy. Ejection fraction is visually estimated at 60-65 %. Tissue Doppler/Mitral Doppler indices are consistent with impaired relaxation (Stage I diastolic dysfunction). Right Ventricle: Normal right ventricular size. Normal right ventricular systolic function. Left Atrium: The left atrium is normal in size. Right Atrium: The right atrium is normal in size. Mitral Valve: Mitral valve leaflets appear mildly thickened. Mild mitral annular calcification. Trace mitral regurgitation. Aortic Valve: Normal appearance of the aortic valve. No significant aortic stenosis or insufficiency. Tricuspid Valve: Normal appearance and function of the tricuspid valve with trace physiologic regurgitation. Normal right ventricular systolic pressure. The estimated Peak RVSP is 27 mmHg. Pulmonic Valve: Pulmonic valve not well visualized. Pericardium: Normal pericardium with no significant pericardial effusion. Aorta: Normal aortic root. IVC: Normal size and normal respiratory collapse consistent with normal right atrial pressure. Conclusions: Normal left ventricular systolic function. Normal left ventricular cavity size. Mild concentric left ventricular hypertrophy. Ejection fraction is visually estimated at 60-65 %. Tissue Doppler/Mitral Doppler indices are consistent with impaired relaxation (Stage I diastolic dysfunction). Mitral valve leaflets appear mildly thickened. Mild mitral annular calcification. Trace mitral regurgitation. Normal appearance and function of the tricuspid valve with trace physiologic regurgitation. Normal right ventricular systolic pressure. The estimated Peak RVSP is 27 mmHg. Electronically Signed By: Jorgito Lao 2018-10-28 16:29:45 PDT
--- NOTE | 2018-10-28 17:44 | PN ---
Date/Time of Note Date/Time of Note DATE: 10/28/18 TIME: 17:42 Assessment/Plan VTE Prophylaxis Risk score (from [facility] [place])>0 risk: 4 SCD applied (from [facility] [place]): Yes Pharmacological prophylaxis: LMWH, other Lines/Catheters IV Catheter Type (from [facility]): Saline Lock Urinary Cath still in place: No Assessment/Plan Hospital Course Patient complains of shortness of breath and requested to see media relations intern Dr. Davis, continue breathing treatments, antibiotics. Assessment/Plan -Acute bronchitis, influenza swab is negative, continue Rocephin, steroids and breathing treatment. Dr. Arango is following in infection disease consultation. -Asthma, continue bronchodilators. -Coronary artery disease history of PCI and stent placement, continue Plavix. Patient followed with Dr. Davis as an outpatient. -Hypertension -Hyperlipidemia -Diabetes -GERD Further recommendations based on clinical course. Plan of care discussed with Dr. Clark. Result Diagram: 10/28/18 0550 10/28/18 0550 Results 24hrs Laboratory Tests Test 10/27/18 20:38 10/28/18 02:03 10/28/18 05:50 10/28/18 08:05 Bedside Glucose 192 192 208 White Blood Count 13.3 #H Red Blood Count 4.69 Hemoglobin 13.5 Hematocrit 41.8 Mean Corpuscular 89.1 Volume Mean Corpuscular 28.8 L Hemoglobin Mean Corpuscular 32.3 Hemoglobin Concent Red Cell 13.2 Distribution Width Platelet Count 314 # Mean Platelet Volume 9.3 Immature 0.800 H Granulocytes % Neutrophils % 84.1 H Lymphocytes % 12.1 L Monocytes % 2.9 Eosinophils % 0.0 Basophils % 0.1 Nucleated Red Blood 0.0 Cells % Immature 0.100 H Granulocytes # Neutrophils # 11.2 H Lymphocytes # 1.6 Monocytes # 0.4 Eosinophils # 0.0 Basophils # 0.0 Nucleated Red Blood 0.0 Cells # Sodium Level 142 Potassium Level 4.1 Chloride Level 99 Carbon Dioxide Level 27 Anion Gap 16 #H Blood Urea Nitrogen 15 Creatinine 0.59 Est Glomerular Filtrat Rate mL/min Glucose Level 234 H Calcium Level 9.7 Test 10/28/18 12:13 10/28/18 17:24 Bedside Glucose 179 202 Exam/Review of Systems Exam Vitals Vital Signs Date Temp Pulse Resp B/P (MAP) Pulse Ox O2 O2 Flow FiO2 Time Delivery Rate 10/28/18 98.4 87 18 149/72 97 Room Air 14:57 (97) 10/28/18 21 02:27 Intake and Output 10/27/18 10/27/18 10/28/18 1515:00 23:00 07:00 IntakeIntake Total 850 ml 400 ml BalanceBalance 850 ml 400 ml Exam Constitutional: alert, oriented Neck: supple Respiratory: diminished breath sounds, other (Congested, productive cough) Cardiovascular: nl pulses Gastrointestinal: soft, non-tender Musculoskeletal: nl extremities to inspection Extremities: normal pulses Neurological: nl mental status Results Results 24hrs Laboratory Tests Test 10/27/18 20:38 10/28/18 02:03 10/28/18 05:50 10/28/18 08:05 Bedside Glucose 192 192 208 White Blood Count 13.3 #H Red Blood Count 4.69 Hemoglobin 13.5 Hematocrit 41.8 Mean Corpuscular 89.1 Volume Mean Corpuscular 28.8 L Hemoglobin Mean Corpuscular 32.3 Hemoglobin Concent Red Cell 13.2 Distribution Width Platelet Count 314 # Mean Platelet Volume 9.3 Immature 0.800 H Granulocytes % Neutrophils % 84.1 H Lymphocytes % 12.1 L Monocytes % 2.9 Eosinophils % 0.0 Basophils % 0.1 Nucleated Red Blood 0.0 Cells % Immature 0.100 H Granulocytes # Neutrophils # 11.2 H Lymphocytes # 1.6 Monocytes # 0.4 Eosinophils # 0.0 Basophils # 0.0 Nucleated Red Blood 0.0 Cells # Sodium Level 142 Potassium Level 4.1 Chloride Level 99 Carbon Dioxide Level 27 Anion Gap 16 #H Blood Urea Nitrogen 15 Creatinine 0.59 Est Glomerular Filtrat Rate mL/min Glucose Level 234 H Calcium Level 9.7 Test 10/28/18 12:13 10/28/18 17:24 Bedside Glucose 179 202 Medications Medication Current Medications Ceftriaxone Sodium 50 ml @ 100 mls/hr Q24H IVPB Last administered on 10/28/18at 09:06; Admin Dose 100 MLS/HR; Start 10/26/18 at 09:30 Albuterol/ Ipratropium (Duoneb) 3 ml Q6H RESP THERAPY HHN Last administered on 10/28/18at 02:26; Admin Dose 3 ML; Start 10/26/18 at 09:30 Albuterol/ Ipratropium (Duoneb) 3 ml Q4H RESP THERAPY PRN HHN SHORTNESS OF BREATH; Start 10/26/18 at 09:30 Methylprednisolone Sodium Succinate (Solu-Medrol) 40 mg BID IV Last administered on 10/28/18at 09:02; Admin Dose 40 MG; Start 10/26/18 at 10:30 Insulin Human NPH (Humulin N) 14 unit BID SC Last administered on 10/28/18at 09:05; Admin Dose 14 UNIT; Start 10/26/18 at 10:30 Insulin Aspart (Novolog Insulin Pen) NOVOLOG *MILD* ALGORITHM WITH MEALS BEDTIME SC Last administered on 10/28/18at 17:26; Admin Dose 2 UNIT; Start 10/26/18 at 12:00 Enoxaparin Sodium (Lovenox) 30 mg DAILY SC Last administered on 10/28/18at 09:05; Admin Dose 30 MG; Start 10/26/18 at 09:30 Metformin HCl (Glucophage) 500 mg WITH MEALS PO Last administered on 10/28/18at 17:23; Admin Dose 500 MG; Start 10/26/18 at 11:30 Miscellaneous Information 1 ea NOTE XX ; Start 10/26/18 at 10:00 Glucose (Glutose) 15 gm Q15M PRN PO DECREASED GLUCOSE; Start 10/26/18 at 10:00 Glucose (Glutose) 22.5 gm Q15M PRN PO DECREASED GLUCOSE; Start 10/26/18 at 10:00 Dextrose (D50w Syringe) 25 ml Q15M PRN IV DECREASED GLUCOSE; Start 10/26/18 at 10:00 Dextrose (D50w Syringe) 50 ml Q15M PRN IV DECREASED GLUCOSE; Start 10/26/18 at 10:00 Glucagon (Glucagen) 1 mg Q15M PRN IM DECREASED GLUCOSE; Start 10/26/18 at 10:00 Glucose (Glutose) 15 gm Q15M PRN BUCCAL DECREASED GLUCOSE; Start 10/26/18 at 10:00 Acetaminophen (Tylenol Tab) 650 mg Q6H PRN PO MILD PAIN(1-3)OR ELEVATED TEMP Last administered on 10/27/18at 20:40; Admin Dose 650 MG; Start 10/26/18 at 10:00 Ondansetron HCl (Zofran Inj) 4 mg Q6H PRN IV NAUSEA AND/OR VOMITING; Start 10/26/18 at 10:00 Zolpidem Tartrate (Ambien) 5 mg HS PRN PO INSOMNIA Last administered on 10/27/18 23:39; Admin Dose 5 MG; Start 10/26/18 at 22:30 Senna (Senokot) 1 tab BID PO Last administered on 10/28/18 09:01; Admin Dose 1 TAB; Start 10/26/18 at 22:30 Clopidogrel Bisulfate (plaVIX) 75 mg DAILY PO Last administered on 10/28/18 09:01; Admin Dose 75 MG; Start 10/27/18 at 16:30 Hydrocodone Bit/ Homatropine Methylb (Hycodan Liquid) 5 ml Q6H PRN PO COUGH Last administered on 10/28/18 04:25; Admin Dose 5 ML; Start 10/27/18 at 16:30 ROLF BAILEY Oct 28, 2018 17:44
[2018-10-28 20:09] VITALS: BP 158/71; PULSE 87; RESP 18
[2018-10-28] MEDS: GABAPENTIN 300 MG CAP PO SCH (23:00)
[2018-10-29] MEDS: ALBUTEROL/IPRATROPIUM (NEB) 3 ML AMP HHN SCH ×5 (02:01→20:00)
[2018-10-29 02:09] VITALS: BP 144/82; PULSE 84; RESP 18
[2018-10-29] MEDS: HYDROCODONE/HOMATROPINE 5ML CUP PO PRN (04:32)
--- NOTE | 2018-10-29 06:53 | CONS ---
Assessment/Plan Assessment/Plan Hospital Course (Demo Recall) Dyspnea: I agree that this is all from asthma/bronchitis and non-cardiac. JVP normal, normal RA pressure on echo 10/29. Otherwise EF preserved. Still with mild anterior wheezing and posterior ronchi but symptomatically she feels much better Asthma with acute exacerbation Bronchitis CAD s/p PCI 2014 DM HTN HL -continue steroids/nebs/antibiotics -continue plavix -restart home lipitor 20mg and imdur 30mg -agree with holding MTP until wheezing resolves -further treatment and dispo per primary team Consultation Date/Type/Reason Admit Date/Time Oct 27, 2018 at 08:31 Date of Consultation: Oct 29, 2018 Type of Consult Cardiology Reason for Consultation Dyspnea Requesting Provider: ROLF BAILEY Date/Time of Note DATE: 10/29/18 TIME: 06:45 Hx of Present Illness 78 yo F with a h/o CAD s/p PCI with Dr. Davis 2014, asthma, DM, HTN, HL, who presented with cough/dyspnea and is being treated for asthma exacerbation and bronchitis. 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 Davis, for rule out cardiac etiology but Dr. Davis was unavailable and wanted me to see the pt. She notes that her was sick recently and since then she started to have a cough and had a few days of fevers at home. She was having significant dyspnea and wheezing leading to her hospitalization. She has had similar occurrences with prior URIs. No chest pain, orthopnea, PND, edema. Her wheezing and dyspnea has improved significantly. per hPI Past Medical History per hPI Home Meds Active Scripts Prednisone* (Prednisone*) 20 Mg Tab, 40 MG PO DAILY for 5 Days, TAB Prov:SABRINA LYLES MD 10/25/18 Hydroxyzine Hcl* (Hydroxyzine Hcl*) 25 Mg Tablet, 25 MG PO TID, #30 TAB Prov:SABRINA LYLES MD 10/25/18 Prednisone* (Prednisone*) 20 Mg Tab, 40 MG PO DAILY for 4 Days, TAB Start October 25, 2018 Prov:AVTAR SIERRA MD 10/24/18 Azithromycin* (Zithromax*) 250 Mg Tablet, 250 MG PO .KRISTEN DIRECTED, #6 TAB TAKE 500 MG (2 TABS) THE FIRST DAY THEN 250 MG (1 TAB) DAYS 2-5 Prov:AVTAR SIERRA MD 10/24/18 Metoprolol Succinate* (Toprol XL*) 25 Mg Tab.sr.24h, 25 MG PO DAILY for CAD, HTN, #90 TAB Prov:MARINE CORRAL MD 02/14/15 Ticagrelor* (Brilinta*) 90 Mg Tablet, 90 MG PO BID, #60 Prov:MARINE CORRAL MD 02/14/15 Isosorbide Mononitrate* (Isosorbide Mononitrate*) 30 Mg Tabsr, 30 MG PO DAILY for Coronary artery disesae, HTN, #90 TAB Prov:MARINE CORRAL MD 02/14/15 Reported Medications [Insulin] No Conflict Check, 35 SC DAILY 06/09/18 Ranitidine Hcl* (Zantac*) 300 Mg Tablet, 300 MG PO HS, #30 TAB 06/09/18 [Dexilant] No Conflict Check, PO 08/04/17 Albuterol Sulfate* (Proair HFA*) 8.5 Gm Hfa.aer.ad, 2 PUFF INH Q4, #1 INHALER 01/26/16 Atorvastatin Calcium* (Atorvastatin Calcium*) 20 Mg Tablet, 20 MG PO QHS, #30 TAB 01/26/16 Metformin Hcl* (Metformin Hcl*) 500 Mg Tablet, 500 MG PO TID, TAB 09/26/14 Aspirin (Aspirin) 81 Mg Chew, 81 MG PO DAILY 01/05/13 Medications Current Medications Ceftriaxone Sodium 50 ml @ 100 mls/hr Q24H IVPB Last administered on 10/28/18at 09:06; Admin Dose 100 MLS/HR; Start 10/26/18 at 09:30 Albuterol/ Ipratropium (Duoneb) 3 ml Q6H RESP THERAPY HHN Last administered on 10/29/18at 02:01; Admin Dose 3 ML; Start 10/26/18 at 09:30 Albuterol/ Ipratropium (Duoneb) 3 ml Q4H RESP THERAPY PRN HHN SHORTNESS OF BREATH; Start 10/26/18 at 09:30 Methylprednisolone Sodium Succinate (Solu-Medrol) 40 mg BID IV Last administered on 10/28/18at 20:45; Admin Dose 40 MG; Start 10/26/18 at 10:30 Insulin Human NPH (Humulin N) 14 unit BID SC Last administered on 10/28/18at 20:50; Admin Dose 14 UNIT; Start 10/26/18 at 10:30 Insulin Aspart (Novolog Insulin Pen) NOVOLOG *MILD* ALGORITHM WITH MEALS BEDTIME SC Last administered on 10/28/18at 17:26; Admin Dose 2 UNIT; Start 10/26/18 at 12:00 Enoxaparin Sodium (Lovenox) 30 mg DAILY SC Last administered on 10/28/18at 09:05; Admin Dose 30 MG; Start 10/26/18 at 09:30 Metformin HCl (Glucophage) 500 mg WITH MEALS PO Last administered on 10/28/18at 17:23; Admin Dose 500 MG; Start 10/26/18 at 11:30 Miscellaneous Information 1 ea NOTE XX ; Start 10/26/18 at 10:00 Glucose (Glutose) 15 gm Q15M PRN PO DECREASED GLUCOSE; Start 10/26/18 at 10:00 Glucose (Glutose) 22.5 gm Q15M PRN PO DECREASED GLUCOSE; Start 10/26/18 at 10:00 Dextrose (D50w Syringe) 25 ml Q15M PRN IV DECREASED GLUCOSE; Start 10/26/18 at 10:00 Dextrose (D50w Syringe) 50 ml Q15M PRN IV DECREASED GLUCOSE; Start 10/26/18 at 10:00 Glucagon (Glucagen) 1 mg Q15M PRN IM DECREASED GLUCOSE; Start 10/26/18 at 10:00 Glucose (Glutose) 15 gm Q15M PRN BUCCAL DECREASED GLUCOSE; Start 10/26/18 at 10:00 Acetaminophen (Tylenol Tab) 650 mg Q6H PRN PO MILD PAIN(1-3)OR ELEVATED TEMP L ast administered on 10/27/18at 20:40; Admin Dose 650 MG; Start 10/26/18 at 10:00 Ondansetron HCl (Zofran Inj) 4 mg Q6H PRN IV NAUSEA AND/OR VOMITING; Start 10/26/18 at 10:00 Zolpidem Tartrate (Ambien) 5 mg HS PRN PO INSOMNIA Last administered on 10/27/18at 23:39; Admin Dose 5 MG; Start 10/26/18 at 22:30 Senna (Senokot) 1 tab BID PO Last administered on 10/28/18at 20:45; Admin Dose 1 TAB; Start 10/26/18 at 22:30 Clopidogrel Bisulfate (plaVIX) 75 mg DAILY PO Last administered on 10/28/18at 09:01; Admin Dose 75 MG; Start 10/27/18 at 16:30 Hydrocodone Bit/ Homatropine Methylb (Hycodan Liquid) 5 ml Q6H PRN PO COUGH Last administered on 10/29/18at 04:32; Admin Dose 5 ML; Start 10/27/18 at 16:30 Gabapentin (Neurontin) 300 mg BID PO ; Start 10/28/18 at 23:00 Allergies: Coded Allergies: No Known Allergy (Unverified , 06/09/18) Past Surgical History Past Surgical Hx: other (Status post PCI and stent placement to left circumflex in 2014, status post hysterectomy many years ago.) Social History Alcohol Use: none Smoking Status: Former smoker Drug Use: none Exam/Review of Systems Vital Signs Vitals Vital Signs Date Temp Pulse Resp B/P (MAP) Pulse Ox O2 O2 Flow FiO2 Time Delivery Rate 10/29/18 98.0 84 18 144/82 94 02:09 (102) 10/29/18 21 02:01 10/28/18 Room Air 14:57 Intake and Output 10/28/18 10/28/18 10/29/18 1515:00 23:00 07:00 IntakeIntake Total 590 ml 480 ml 960 ml BalanceBalance 590 ml 480 ml 960 ml Exam Constitutional: alert, oriented Psych: no complaints, nl mood/affect Head: normocephalic, atraumatic Neck: supple; No jvd Respiratory: wheezing (anterior); No clear to auscultation (ronchi throughout) Cardiovascular: regular rate and rhythm; No edema, No systolic murmur Gastrointestinal: soft, non-tender; No distended Neurological: nl mental status, nl speech Labs Result Diagram: 10/28/18 0550 10/28/18 0550 Results 24hrs Laboratory Tests Test 10/28/18 08:05 10/28/18 12:13 10/28/18 17:24 10/28/18 18:15 Bedside Glucose 208 179 202 Troponin I < 0.012 Test 10/28/18 20:39 Bedside Glucose 157 Medications Medications Current Medications Ceftriaxone Sodium 50 ml @ 100 mls/hr Q24H IVPB Last administered on 10/28/18at 09:06; Admin Dose 100 MLS/HR; Start 10/26/18 at 09:30 Albuterol/ Ipratropium (Duoneb) 3 ml Q6H RESP THERAPY HHN Last administered on 10/29/18at 02:01; Admin Dose 3 ML; Start 10/26/18 at 09:30 Albuterol/ Ipratropium (Duoneb) 3 ml Q4H RESP THERAPY PRN HHN SHORTNESS OF BREATH; Start 10/26/18 at 09:30 Methylprednisolone Sodium Succinate (Solu-Medrol) 40 mg BID IV Last administered on 10/28/18at 20:45; Admin Dose 40 MG; Start 10/26/18 at 10:30 Insulin Human NPH (Humulin N) 14 unit BID SC Last administered on 10/28/18at 20:50; Admin Dose 14 UNIT; Start 10/26/18 at 10:30 Insulin Aspart (Novolog Insulin Pen) NOVOLOG *MILD* ALGORITHM WITH MEALS BEDTIME SC Last administered on 10/28/18at 17:26; Admin Dose 2 UNIT; Start 10/26/18 at 12:00 Enoxaparin Sodium (Lovenox) 30 mg DAILY SC Last administered on 10/28/18at 09:05; Admin Dose 30 MG; Start 10/26/18 at 09:30 Metformin HCl (Glucophage) 500 mg WITH MEALS PO Last administered on 10/28/18at 17:23; Admin Dose 500 MG; Start 10/26/18 at 11:30 Miscellaneous Information 1 ea NOTE XX ; Start 10/26/18 at 10:00 Glucose (Glutose) 15 gm Q15M PRN PO DECREASED GLUCOSE; Start 10/26/18 at 10:00 Glucose (Glutose) 22.5 gm Q15M PRN PO DECREASED GLUCOSE; Start 10/26/18 at 10:00 Dextrose (D50w Syringe) 25 ml Q15M PRN IV DECREASED GLUCOSE; Start 10/26/18 at 10:00 Dextrose (D50w Syringe) 50 ml Q15M PRN IV DECREASED GLUCOSE; Start 10/26/18 at 10:00 Glucagon (Glucagen) 1 mg Q15M PRN IM DECREASED GLUCOSE; Start 10/26/18 at 10:00 Glucose (Glutose) 15 gm Q15M PRN BUCCAL DECREASED GLUCOSE; Start 10/26/18 at 10:00 Acetaminophen (Tylenol Tab) 650 mg Q6H PRN PO MILD PAIN(1-3)OR ELEVATED TEMP Last administered on 10/27/18at 20:40; Admin Dose 650 MG; Start 10/26/18 at 10:00 Ondansetron HCl (Zofran Inj) 4 mg Q6H PRN IV NAUSEA AND/OR VOMITING; Start 10/26/18 at 10:00 Zolpidem Tartrate (Ambien) 5 mg HS PRN PO INSOMNIA Last administered on 10/27/18 23:39; Admin Dose 5 MG; Start 10/26/18 at 22:30 Senna (Senokot) 1 tab BID PO Last administered on 10/28/18at 20:45; Admin Dose 1 TAB; Start 10/26/18 at 22:30 Clopidogrel Bisulfate (plaVIX) 75 mg DAILY PO Last administered on 10/28/18 09:01; Admin Dose 75 MG; Start 10/27/18 at 16:30 Hydrocodone Bit/ Homatropine Methylb (Hycodan Liquid) 5 ml Q6H PRN PO COUGH Las t administered on 10/29/18 04:32; Admin Dose 5 ML; Start 10/27/18 at 16:30 Gabapentin (Neurontin) 300 mg BID PO ; Start 10/28/18 at 23:00 VIV LANDERS Oct 29, 2018 06:53
[2018-10-29] MEDS: metFORMIN 500 MG TAB PO SCH ×3 (08:12→17:25)
[2018-10-29] MEDS: SENNA TAB PO SCH ×2 (08:12→20:45)
[2018-10-29] MEDS: GABAPENTIN 300 MG CAP PO SCH ×2 (08:12→20:45)
[2018-10-29] MEDS: ISOSORBIDE MONONITRATE(SR)30 MG TAB PO SCH (08:12)
[2018-10-29] MEDS: CLOPIDOGREL 75 MG TAB PO SCH (08:12)
[2018-10-29] MEDS: METHYLPREDNISOLONE 40 MG INJ IV SCH (08:13)
[2018-10-29] MEDS: NPH, HUMAN INSULIN ISOPHANE 3ML VIAL SC SCH ×2 (08:15→20:47)
[2018-10-29] MEDS: ENOXAPARIN 30 MG/0.3 ML SYG SC SCH (08:16)
[2018-10-29] MEDS: INSULIN ASPART [NOVOLOG] 3 ML PEN SC SCH ×4 (08:16→20:47)
[2018-10-29 08:22] VITALS: BP 149/65; PULSE 79; RESP 14
[2018-10-29] MEDS: CEFTRIAXONE 1 GM/50 ML (PMX) 50 ML IVPB SCH (09:13)
--- NOTE | 2018-10-29 13:58 | CONS ---
Assessment/Plan Assessment/Plan Hospital Course (Demo Recall) Feels better no fevers overnight Antimicrobials: Rocephin Physical examination: Well-developed elderly woman who is alert in no distress. Head atraumatic normocephalic neck is supple chest rise symmetrical breath sounds clear heart S1-S2 abdomen soft bowel sounds present extremities without cyanosis Assessment: 1. Acute asthmatic bronchitis 2. Hypertension 3. Coronary artery disease with a history of cardiac stents Plan: Improving, change antibiotics to Levaquin, continue steroids taper, blood sugar control Consultation Date/Type/Reason Admit Date/Time Oct 27, 2018 at 08:31 Initial Consult Date Type of Consult id Requesting Provider: ROLF BAILEY Date/Time of Note DATE: 10/29/18 TIME: 13:57 Exam/Review of Systems Exam Vitals Vital Signs Date Temp Pulse Resp B/P (MAP) Pulse Ox O2 O2 Flow FiO2 Time Delivery Rate 10/29/18 98.5 79 14 149/65 97 08:22 (93) 10/29/18 21 02:01 10/28/18 Room Air 14:57 Intake and Output 10/28/18 10/28/18 10/29/18 1414:59 22:59 06:59 IntakeIntake Total 590 ml 480 ml 1200 ml BalanceBalance 590 ml 480 ml 1200 ml Results Result Diagram: 10/28/18 0550 10/28/18 0550 Results 24hrs Laboratory Tests Test 10/28/18 17:24 10/28/18 18:15 10/28/18 20:39 10/29/18 07:58 Bedside Glucose 202 157 188 Troponin I < 0.012 Test 10/29/18 11:58 Bedside Glucose 261 H Medications Medication Current Medications Ceftriaxone Sodium 50 ml @ 100 mls/hr Q24H IVPB Last administered on 10/29/18at 09:13; Admin Dose 100 MLS/HR; Start 10/26/18 at 09:30 Albuterol/ Ipratropium (Duoneb) 3 ml Q6H RESP THERAPY HHN Last administered on 10/29/18at 07:49; Admin Dose 3 ML; Start 10/26/18 at 09:30 Albuterol/ Ipratropium (Duoneb) 3 ml Q4H RESP THERAPY PRN HHN SHORTNESS OF BREATH; Start 10/26/18 at 09:30 Methylprednisolone Sodium Succinate (Solu-Medrol) 40 mg BID IV Last administered on 10/29/18 08:13; Admin Dose 40 MG; Start 10/26/18 at 10:30 Insulin Human NPH (Humulin N) 14 unit BID SC Last administered on 10/29/18 08:15; Admin Dose 14 UNIT; Start 10/26/18 at 10:30 Insulin Aspart (Novolog Insulin Pen) NOVOLOG *MILD* ALGORITHM WITH MEALS BEDTIME SC Last administered on 10/29/18 12:03; Admin Dose 4 UNIT; Start 10/26/18 at 12:00 Enoxaparin Sodium (Lovenox) 30 mg DAILY SC Last administered on 10/29/18 08:16; Admin Dose 30 MG; Start 10/26/18 at 09:30 Metformin HCl (Glucophage) 500 mg WITH MEALS PO Last administered on 10/29/18 11:59; Admin Dose 500 MG; Start 10/26/18 at 11:30 Miscellaneous Information 1 ea NOTE XX ; Start 10/26/18 at 10:00 Glucose (Glutose) 15 gm Q15M PRN PO DECREASED GLUCOSE; Start 10/26/18 at 10:00 Glucose (Glutose) 22.5 gm Q15M PRN PO DECREASED GLUCOSE; Start 10/26/18 at 10:00 Dextrose (D50w Syringe) 25 ml Q15M PRN IV DECREASED GLUCOSE; Start 10/26/18 at 10:00 Dextrose (D50w Syringe) 50 ml Q15M PRN IV DECREASED GLUCOSE; Start 10/26/18 at 10:00 Glucagon (Glucagen) 1 mg Q15M PRN IM DECREASED GLUCOSE; Start 10/26/18 at 10:00 Glucose (Glutose) 15 gm Q15M PRN BUCCAL DECREASED GLUCOSE; Start 10/26/18 at 10:00 Acetaminophen (Tylenol Tab) 650 mg Q6H PRN PO MILD PAIN(1-3)OR ELEVATED TEMP Last administered on 10/27/18at 20:40; Admin Dose 650 MG; Start 10/26/18 at 10:00 Ondansetron HCl (Zofran Inj) 4 mg Q6H PRN IV NAUSEA AND/OR VOMITING; Start 10/26/18 at 10:00 Zolpidem Tartrate (Ambien) 5 mg HS PRN PO INSOMNIA Last administered on 23:39; Admin Dose 5 MG; Start 10/26/18 at 22:30 Senna (Senokot) 1 tab BID PO Last administered on 10/29/18 08:12; Admin Dose 1 TAB; Start 10/26/18 at 22:30 Clopidogrel Bisulfate (plaVIX) 75 mg DAILY PO Last administered on 10/29/18 08:12; Admin Dose 75 MG; Start 10/27/18 at 16:30 Hydrocodone Bit/ Homatropine Methylb (Hycodan Liquid) 5 ml Q6H PRN PO COUGH Last administered on 10/29/18 04:32; Admin Dose 5 ML; Start 10/27/18 at 16:30 Gabapentin (Neurontin) 300 mg BID PO Last administered on 10/29/18 08:12; Admin Dose 300 MG; Start 10/28/18 at 23:00 Isosorbide Mononitrate (Imdur) 30 mg DAILY PO Last administered on 10/29/18 08:12; Admin Dose 30 MG; Start 10/29/18 at 09:00 Atorvastatin Calcium (Lipitor) 20 mg HS PO ; Start 10/29/18 at 21:00 ALIE TOLEDO NP Oct 29, 2018 13:58
--- NOTE | 2018-10-29 14:07 | PN ---
Date/Time of Note Date/Time of Note DATE: 10/29/18 TIME: 14:01 Assessment/Plan VTE Prophylaxis Risk score (from Ns)>0 risk: 4 SCD applied (from Ns): Yes Pharmacological prophylaxis: LMWH Lines/Catheters IV Catheter Type (from [facility]): [facility] Urinary Cath still in place: No Assessment/Plan Hospital Course Patient complains of nonproductive cough, states that she feels better ov erall, status post evaluation by turn operator, 2D echo with preserved ejection fraction, continue current care, continue steroids with taper doses. If patient continues to improve anticipate discharge home tomorrow or Friday. Assessment/Plan -Acute bronchitis, influenza swab is negative, continue Rocephin, steroids and breathing treatment. Dr. Arango is following in infection disease consultation. -Asthma, continue bronchodilators. -Coronary artery disease history of PCI and stent placement, continue Plavix. Patient followed with Dr. Davis as an outpatient. Status post evaluation by Dr. Singh in cardiology consultation. Continue Imdur and statin. -Stage I diastolic dysfunction with preserved ejection fraction per echo. -Hypertension -Hyperlipidemia -Diabetes -GERD Further recommendations based on clinical course. Plan of care discussed with Dr. Clark. Result Diagram: 10/28/18 0550 10/28/18 0550 Results 24hrs Laboratory Tests Test 10/28/18 17:24 10/28/18 18:15 10/28/18 20:39 10/29/18 07:58 Bedside Glucose 202 157 188 Troponin I < 0.012 Test 10/29/18 11:58 Bedside Glucose 261 H Exam/Review of Systems Exam Vitals Vital Signs Date Temp Pulse Resp B/P (MAP) Pulse Ox O2 O2 Flow FiO2 Time Delivery Rate 10/29/18 98.5 79 14 149/65 97 08:22 (93) 10/29/18 21 02:01 10/28/18 Room Air 14:57 Intake and Output 10/28/18 10/28/18 10/29/18 1515:00 23:00 07:00 IntakeIntake Total 590 ml 480 ml 1200 ml BalanceBalance 590 ml 480 ml 1200 ml Exam Constitutional: alert, oriented Neck: supple Respiratory: diminished breath sounds, (cough) Cardiovascular: nl pulses Gastrointestinal: soft, non-tender Musculoskeletal: nl extremities to inspection Extremities: normal pulses Neurological: nl mental status Results Results 24hrs Laboratory Tests Test 10/28/18 17:24 10/28/18 18:15 10/28/18 20:39 10/29/18 07:58 Bedside Glucose 202 157 188 Troponin I < 0.012 Test 10/29/18 11:58 Bedside Glucose 261 H Medications Medication Current Medications Albuterol/ Ipratropium (Duoneb) 3 ml Q6H RESP THERAPY HHN Last administered on 10/29/18at 07:49; Admin Dose 3 ML; Start 10/26/18 at 09:30 Albuterol/ Ipratropium (Duoneb) 3 ml Q4H RESP THERAPY PRN HHN SHORTNESS OF BREATH; Start 10/26/18 at 09:30 Methylprednisolone Sodium Succinate (Solu-Medrol) 40 mg BID IV Last administered on 10/29/18at 08:13; Admin Dose 40 MG; Start 10/26/18 at 10:30 Insulin Human NPH (Humulin N) 14 unit BID SC Last administered on 10/29/18at 08:15; Admin Dose 14 UNIT; Start 10/26/18 at 10:30 Insulin Aspart (Novolog Insulin Pen) NOVOLOG *MILD* ALGORITHM WITH MEALS BEDTIME SC Last administered on 10/29/18at 12:03; Admin Dose 4 UNIT; Start 10/26/18 at 12:00 Enoxaparin Sodium (Lovenox) 30 mg DAILY SC Last administered on 10/29/18at 08:16; Admin Dose 30 MG; Start 10/26/18 at 09:30 Metformin HCl (Glucophage) 500 mg WITH MEALS PO Last administered on 10/29/18at 11:59; Admin Dose 500 MG; Start 10/26/18 at 11:30 Miscellaneous Information 1 ea NOTE XX ; Start 10/26/18 at 10:00 Glucose (Glutose) 15 gm Q15M PRN PO DECREASED GLUCOSE; Start 10/26/18 at 10:00 Glucose (Glutose) 22.5 gm Q15M PRN PO DECREASED GLUCOSE; Start 10/26/18 at 10:00 Dextrose (D50w Syringe) 25 ml Q15M PRN IV DECREASED GLUCOSE; Start 10/26/18 at 10:00 Dextrose (D50w Syringe) 50 ml Q15M PRN IV DECREASED GLUCOSE; Start 10/26/18 at 10:00 Glucagon (Glucagen) 1 mg Q15M PRN IM DECREASED GLUCOSE; Start 10/26/18 at 10:00 Glucose (Glutose) 15 gm Q15M PRN BUCCAL DECREASED GLUCOSE; Start 10/26/18 at 10:00 Acetaminophen (Tylenol Tab) 650 mg Q6H PRN PO MILD PAIN(1-3)OR ELEVATED TEMP Last administered on 10/27/18at 20:40; Admin Dose 650 MG; Start 10/26/18 at 10:00 Ondansetron HCl (Zofran Inj) 4 mg Q6H PRN IV NAUSEA AND/OR VOMITING; Start 10/26/18 at 10:00 Zolpidem Tartrate (Ambien) 5 mg HS PRN PO INSOMNIA Last administered on 10/27/18 23:39; Admin Dose 5 MG; Start 10/26/18 at 22:30 Senna (Senokot) 1 tab BID PO Last administered on 10/29/18 08:12; Admin Dose 1 TAB; Start 10/26/18 at 22:30 Clopidogrel Bisulfate (plaVIX) 75 mg DAILY PO Last administered on 10/29/18at 08:12; Admin Dose 75 MG; Start 10/27/18 at 16:30 Hydrocodone Bit/ Homatropine Methylb (Hycodan Liquid) 5 ml Q6H PRN PO COUGH Last administered on 10/29/18 04:32; Admin Dose 5 ML; Start 10/27/18 at 16:30 Gabapentin (Neurontin) 300 mg BID PO Last administered on 10/29/18 08:12; Admin Dose 300 MG; Start 10/28/18 at 23:00 Isosorbide Mononitrate (Imdur) 30 mg DAILY PO Last administered on 10/29/18at 08:12; Admin Dose 30 MG; Start 10/29/18 at 09:00 Atorvastatin Calcium (Lipitor) 20 mg HS PO ; Start 10/29/18 at 21:00 Levofloxacin (Levaquin) 500 mg DAILY@06 PO ; Start 10/30/18 at 06:00; Status ROLF SAUCEDO Oct 29, 2018 14:07
[2018-10-29 15:11] VITALS: BP 129/60; PULSE 79; RESP 16
[2018-10-29] MEDS ORDERED: LEVOFLOXACIN 500 MG TAB PO ONE (18:00)
[2018-10-29 20:10] VITALS: BP 131/84; PULSE 85; RESP 18
[2018-10-29] MEDS: ATORVASTATIN 20 MG TAB PO SCH (20:45)
[2018-10-30 02:22] VITALS: BP 147/69; PULSE 74; RESP 18
[2018-10-30] MEDS: ALBUTEROL/IPRATROPIUM (NEB) 3 ML AMP HHN SCH ×4 (03:00→20:04)
--- NOTE | 2018-10-30 04:47 | PDOCDIS ---
Discharge Instructions CONDITION [id number] Patient Condition: [id number] Stable HOME CARE INSTRUCTIONS: [id number] Diet Instructions: [id number] ACTIVITY: [id number] Activity Restrictions: [id number] Slowly Increase Activity Rest between Activity Avoid heavy lifting Do not operate Machinery Do not operate Power Tool [id number] Bathing Restrictions: [id number] Sponge Bath FOLLOW UP/APPOINTMENTS Follow-up Plan - FU with Primary x 1 week Call 911 or go to the nearst ER if symptoms get worse- Patient verbalized understanding discharge instructions staff KEYONNA VÁZQUEZ Oct 30, 2018 04:47
--- NOTE | 2018-10-30 04:48 | DS ---
Date/Time of Note Date/Time of Note DATE: 10/30/18 TIME: 04:48 Discharge Summary Admission/Discharge Info Admit Date/Time Oct 27, 2018 at 08:31 Discharge Date/Time Discharge Diagnosis -Acute bronchitis, influenza swab is negative, continue Rocephin, steroids and breathing treatment. Dr. Arango is following in infection disease consultation. -Asthma, continue bronchodilators. -Coronary artery disease history of PCI and stent placement, continue Plavix. Patient followed with Dr. Davis as an outpatient. Status post evaluation by Dr. Singh in cardiology consultation. Continue Imdur and statin. -Stage I diastolic dysfunction with preserved ejection fraction per echo. -Hypertension -Hyperlipidemia -Diabetes -GERD discussed with Dr. Clark. Patient Condition: Stable Consults ID CARDIOLOGY Hospital Course Patient is 78 very female with history of diabetes, high cholesterol, hypertension,coronary artery disease, status post PCI to the mid left circumflex with drug-eluting stent in [place] [address] Davis, history of asthma, GERD and depression. Patient was admitted with productive cough x 5 days. Patient's condition did not improve, she felt congested with productive cough and some shortness of breath. Chest x-ray is negative for pneumonia. Patient is admitted for further evaluation and management. Constitutional: NAD, VSS, alert, oriented Neck: supple Respiratory: CTAB Cardiovascular: nl pulses Gastrointestinal: soft, non-tender Musculoskeletal: nl extremities to inspection Extremities: normal pulses Neurological: nl mental status Patient was discharged in a stable condition. Patient was seen in collaboration with Dr Clark. Home Meds Active Scripts Methylprednisolone* (Medrol* DOSE PACK) 4 Mg/Dose-Pack Tab.ds.pk, 4 MG PO . D IRECTED, #1 PACKET Prov:KEYONNA VÁZQUEZ 10/31/18 Ipratropium-Albuterol (Ipratropium-Albuterol) 0.5-3 Mg/3 Ml Ampul.neb, 3 ML HHN Q6H RESP THERAPY, #1 1 Refill Prov:KEYONNA VÁZQUEZ 10/31/18 Levofloxacin* (Levofloxacin*) 250 Mg Tablet, 250 MG PO DAILY@06 for 4 Days, TAB Prov:KEYONNA VÁZQUEZ 10/31/18 Albuterol Sulfate* (Proair HFA*) 8.5 Gm Hfa.aer.ad, 2 PUFF INH Q4, #1 INHALER 1 Refill Prov:ANYASUKHJINDERKEYONNA 10/31/18 Prednisone* (Prednisone*) 20 Mg Tab, 40 MG PO DAILY for 5 Days, TAB Prov:SABRINA LYLES MD 10/25/18 Hydroxyzine Hcl* (Hydroxyzine Hcl*) 25 Mg Tablet, 25 MG PO TID, #30 TAB Prov:SABRINA LYLES MD 10/25/18 Prednisone* (Prednisone*) 20 Mg Tab, 40 MG PO DAILY for 4 Days, TAB Start October 25, 2018 Prov:AVTAR SIERRA MD 10/24/18 Metoprolol Succinate* (Toprol XL*) 25 Mg Tab.sr.24h, 25 MG PO DAILY for CAD, HTN, #90 TAB Prov:MARINE CORRAL MD 02/14/15 Ticagrelor* (Brilinta*) 90 Mg Tablet, 90 MG PO BID, #60 Prov:MARINE CORRAL MD 02/14/15 Isosorbide Mononitrate* (Isosorbide Mononitrate*) 30 Mg Tabsr, 30 MG PO DAILY for Coronary artery disesae, HTN, #90 TAB Prov:MARINE CORRAL MD 02/14/15 Reported Medications [Insulin] No Conflict Check, 35 SC DAILY 06/09/18 Ranitidine Hcl* (Zantac*) 300 Mg Tablet, 300 MG PO HS, #30 TAB 06/09/18 [Dexilant] No Conflict Check, PO 08/04/17 Atorvastatin Calcium* (Atorvastatin Calcium*) 20 Mg Tablet, 20 MG PO QHS, #30 TAB 01/26/16 Metformin Hcl* (Metformin Hcl*) 500 Mg Tablet, 500 MG PO TID, TAB 09/26/14 Aspirin (Aspirin) 81 Mg Chew, 81 MG PO DAILY 01/05/13 Follow-up Plan - FU with Primary x 1 week Call 911 or go to the nearst ER if symptoms get worse- Primary Care Provider Seferino Clark MD Time spent on discharge: < 30 minutes Pending Labs Laboratory Tests Test 10/29/18 07:58 10/29/18 11:58 10/29/18 17:23 10/29/18 20:44 Bedside 188 261 238 243 Glucose mg/dL (70-220) mg/dL (70-220) mg/dL (70-220) mg/dL (70-220) Test 10/30/18 02:19 Bedside 120 Glucose mg/dL (70-220) KEYONNA VÁZQUEZ Oct 30, 2018 04:48
[2018-10-30] MEDS: LEVOFLOXACIN 250 MG TAB PO SCH (06:02)
--- NOTE | 2018-10-30 07:25 | CONS ---
Assessment/Plan Assessment/Plan Hospital Course (Demo Recall) Dyspnea: I agree that this is all from asthma/bronchitis and non-cardiac. JVP normal, normal RA pressure on echo 10/29. Otherwise EF preserved. Asthma with acute exacerbation Bronchitis CAD s/p PCI 2014 DM HTN HL -continue steroids/nebs/antibiotics -continue plavix -home lipitor 20mg and imdur 30mg -agree with holding MTP until wheezing resolves, can restart as outpt -further treatment and dispo per primary team Consultation Date/Type/Reason Admit Date/Time Oct 27, 2018 at 08:31 Initial Consult Date 10/29/18 Type of Consult Cardiology Requesting Provider: ROLF BAILEY Date/Time of Note DATE: 10/30/18 TIME: 07:24 24 HR Interval Summary Free Text/Dictation No events. Still with intermittent wheezing but feels better. No chest pain Exam/Review of Systems Vital Signs Vitals Vital Signs Date Temp Pulse Resp B/P (MAP) Pulse Ox O2 O2 Flow FiO2 Time Delivery Rate 10/30/18 20 95 21 07:08 10/30/18 93 03:00 10/30/18 98.0 147/69 02:22 (95) 10/28/18 Room Air 14:57 Intake and Output 10/29/18 10/29/18 10/30/18 1515:00 23:00 07:00 IntakeIntake Total 530 ml 660 ml 1480 ml BalanceBalance 530 ml 660 ml 1480 ml Exam Constitutional: alert, oriented Psych: no complaints, nl mood/affect Head: normocephalic, atraumatic Neck: No jvd Respiratory: wheezing (mild); No clear to auscultation (ronchi), No crackles/rales Cardiovascular: regular rate and rhythm; No edema, No systolic murmur Gastrointestinal: soft, non-tender Neurological: nl mental status, nl speech Labs Result Diagram: 10/28/18 0550 10/28/18 0550 Results 24hrs Laboratory Tests Test 10/29/18 07:58 10/29/18 11:58 10/29/18 17:23 10/29/18 20:44 Bedside Glucose 188 261 H 238 H 243 H Test 10/30/18 02:19 Bedside Glucose 120 Medications Medications Current Medications Albuterol/ Ipratropium (Duoneb) 3 ml Q6H RESP THERAPY N Last administered on 10/30/18at 07:08; Admin Dose 3 ML; Start 10/26/18 at 09:30 Albuterol/ Ipratropium (Duoneb) 3 ml Q4H RESP THERAPY PRN HHN SHORTNESS OF BREATH; Start 10/26/18 at 09:30 Insulin Human NPH (Humulin N) 14 unit BID SC Last administered on 10/29/18at 20:47; Admin Dose 14 UNIT; Start 10/26/18 at 10:30 Insulin Aspart (Novolog Insulin Pen) NOVOLOG *MILD* ALGORITHM WITH MEALS BEDTIME SC Last administered on 10/29/18at 20:47; Admin Dose 2 UNIT; Start 10/26/18 at 12:00 Enoxaparin Sodium (Lovenox) 30 mg DAILY SC Last administered on 10/29/18at 08:16; Admin Dose 30 MG; Start 10/26/18 at 09:30 Metformin HCl (Glucophage) 500 mg WITH MEALS PO Last administered on 10/29/18at 17:25; Admin Dose 500 MG; Start 10/26/18 at 11:30 Miscellaneous Information 1 ea NOTE XX ; Start 10/26/18 at 10:00 Glucose (Glutose) 15 gm Q15M PRN PO DECREASED GLUCOSE; Start 10/26/18 at 10:00 Glucose (Glutose) 22.5 gm Q15M PRN PO DECREASED GLUCOSE; Start 10/26/18 at 10:00 Dextrose (D50w Syringe) 25 ml Q15M PRN IV DECREASED GLUCOSE; Start 10/26/18 at 10:00 Dextrose (D50w Syringe) 50 ml Q15M PRN IV DECREASED GLUCOSE; Start 10/26/18 at 10:00 Glucagon (Glucagen) 1 mg Q15M PRN IM DECREASED GLUCOSE; Start 10/26/18 at 10:00 Glucose (Glutose) 15 gm Q15M PRN BUCCAL DECREASED GLUCOSE; Start 10/26/18 at 10:00 Acetaminophen (Tylenol Tab) 650 mg Q6H PRN PO MILD PAIN(1-3)OR ELEVATED TEMP Last administered on 10/27/18at 20:40; Admin Dose 650 MG; Start 10/26/18 at 10:00 Ondansetron HCl (Zofran Inj) 4 mg Q6H PRN IV NAUSEA AND/OR VOMITING; Start 10/26/18 at 10:00 Zolpidem Tartrate (Ambien) 5 mg HS PRN PO INSOMNIA Last administered on 10/27/18 23:39; Admin Dose 5 MG; Start 10/26/18 at 22:30 Senna (Senokot) 1 tab BID PO Last administered on 10/29/18 20:45; Admin Dose 1 TAB; Start 10/26/18 at 22:30 Clopidogrel Bisulfate (plaVIX) 75 mg DAILY PO Last administered on 10/29/18 08:12; Admin Dose 75 MG; Start 10/27/18 at 16:30 Hydrocodone Bit/ Homatropine Methylb (Hycodan Liquid) 5 ml Q6H PRN PO COUGH Last administered on 10/29/18 04:32; Admin Dose 5 ML; Start 10/27/18 at 16:30 Gabapentin (Neurontin) 300 mg BID PO Last administered on 10/29/18 20:45; Admin Dose 300 MG; Start 10/28/18 at 23:00 Isosorbide Mononitrate (Imdur) 30 mg DAILY PO Last administered on 10/29/18 08:12; Admin Dose 30 MG; Start 10/29/18 at 09:00 Atorvastatin Calcium (Lipitor) 20 mg HS PO Last administered on 10/29/18 20:45; Admin Dose 20 MG; Start 10/29/18 at 21:00 Levofloxacin (Levaquin) 250 mg DAILY@06 PO Last administered on 10/30/18 06:02; Admin Dose 250 MG; Start 10/30/18 at 06:00 Methylprednisolone Sodium Succinate (Solu-Medrol) 40 mg DAILY IV ; Start 10/30/18 at 09:00 VIV LANDERS Oct 30, 2018 07:25
[2018-10-30 08:00] VITALS: BP 154/70; PULSE 86; RESP 16
[2018-10-30] MEDS: INSULIN ASPART [NOVOLOG] 3 ML PEN SC SCH ×4 (08:00→21:08)
[2018-10-30] MEDS: metFORMIN 500 MG TAB PO SCH ×3 (08:03→17:08)
[2018-10-30] MEDS: GABAPENTIN 300 MG CAP PO SCH ×2 (08:08→20:59)
[2018-10-30] MEDS: CLOPIDOGREL 75 MG TAB PO SCH (08:09)
[2018-10-30] MEDS: ISOSORBIDE MONONITRATE(SR)30 MG TAB PO SCH (08:09)
[2018-10-30] MEDS: SENNA TAB PO SCH ×2 (08:09→20:59)
[2018-10-30] MEDS: METHYLPREDNISOLONE 40 MG INJ IV SCH (08:10)
[2018-10-30] MEDS: ENOXAPARIN 30 MG/0.3 ML SYG SC SCH (08:12)
[2018-10-30] MEDS: NPH, HUMAN INSULIN ISOPHANE 3ML VIAL SC SCH ×2 (08:12→21:06)
--- NOTE | 2018-10-30 11:28 | CONS ---
Assessment/Plan Assessment/Plan Hospital Course (Demo Recall) All noted, no acute events Antimicrobials: Levaquin Physical examination: Well-developed elderly woman who is alert in no distress. Head atraumatic normocephalic neck is supple chest rise symmetrical breath sounds clear heart S1-S2 abdomen soft bowel sounds present extremities without cyanosis Assessment: 1. Acute asthmatic bronchitis 2. Hypertension 3. Coronary artery disease with a history of cardiac stents Plan: Stable, ok dc on oral Levaquin for 4 more days Consultation Date/Type/Reason Admit Date/Time Oct 27, 2018 at 08:31 Initial Consult Date Type of Consult id Requesting Provider: ROLF BAILEY Date/Time of Note DATE: 10/30/18 TIME: 11:27 Exam/Review of Systems Exam Vitals Vital Signs Date Temp Pulse Resp B/P (MAP) Pulse Ox O2 O2 Flow FiO2 Time Delivery Rate 10/30/18 98.1 86 16 154/70 98 Room Air 08:00 (98) 10/30/18 07:08 Intake and Output 10/29/18 10/29/18 10/30/18 1515:00 23:00 07:00 IntakeIntake Total 530 ml 660 ml 1480 ml BalanceBalance 530 ml 660 ml 1480 ml Results Result Diagram: 10/28/18 0550 10/28/18 0550 Results 24hrs Laboratory Tests Test 10/29/18 11:58 10/29/18 17:23 10/29/18 20:44 10/30/18 02:19 Bedside Glucose 261 H 238 H 243 H 120 Test 10/30/18 07:57 Bedside Glucose 97 Medications Medication Current Medications Albuterol/ Ipratropium (Duoneb) 3 ml Q6H RESP THERAPY HHN Last administered on 10/30/18at 07:08; Admin Dose 3 ML; Start 10/26/18 at 09:30 Albuterol/ Ipratropium (Duoneb) 3 ml Q4H RESP THERAPY PRN HHN SHORTNESS OF BREATH; Start 10/26/18 at 09:30 Insulin Human NPH (Humulin N) 14 unit BID SC Last administered on 10/30/18at 08:12; Admin Dose 14 UNIT; Start 10/26/18 at 10:30 Insulin Aspart (Novolog Insulin Pen) NOVOLOG *MILD* ALGORITHM WITH MEALS BEDTIME SC Last administered on 10/29/18at 20:47; Admin Dose 2 UNIT; Start 10/26/18 at 12:00 Enoxaparin Sodium (Lovenox) 30 mg DAILY SC Last administered on 10/30/18at 08:12; Admin Dose 30 MG; Start 10/26/18 at 09:30 Metformin HCl (Glucophage) 500 mg WITH MEALS PO Last administered on 10/30/18at 08:03; Admin Dose 500 MG; Start 10/26/18 at 11:30 Miscellaneous Information 1 ea NOTE XX ; Start 10/26/18 at 10:00 Glucose (Glutose) 15 gm Q15M PRN PO DECREASED GLUCOSE; Start 10/26/18 at 10:00 Glucose (Glutose) 22.5 gm Q15M PRN PO DECREASED GLUCOSE; Start 10/26/18 at 10:00 Dextrose (D50w Syringe) 25 ml Q15M PRN IV DECREASED GLUCOSE; Start 10/26/18 at 10:00 Dextrose (D50w Syringe) 50 ml Q15M PRN IV DECREASED GLUCOSE; Start 10/26/18 at 10:00 Glucagon (Glucagen) 1 mg Q15M PRN IM DECREASED GLUCOSE; Start 10/26/18 at 10:00 Glucose (Glutose) 15 gm Q15M PRN BUCCAL DECREASED GLUCOSE; Start 10/26/18 at 10:00 Acetaminophen (Tylenol Tab) 650 mg Q6H PRN PO MILD PAIN(1-3)OR ELEVATED TEMP Last administered on 10/27/18at 20:40; Admin Dose 650 MG; Start 10/26/18 at 10:00 Ondansetron HCl (Zofran Inj) 4 mg Q6H PRN IV NAUSEA AND/OR VOMITING; Start 10/26/18 at 10:00 Zolpidem Tartrate (Ambien) 5 mg HS PRN PO INSOMNIA Last administered on 10/27/18at 23:39; Admin Dose 5 MG; Start 10/26/18 at 22:30 Senna (Senokot) 1 tab BID PO Last administered on 10/30/18at 08:09; Admin Dose 1 TAB; Start 10/26/18 at 22:30 Clopidogrel Bisulfate (plaVIX) 75 mg DAILY PO Last administered on 10/30/18at 08:09; Admin Dose 75 MG; Start 10/27/18 at 16:30 Hydrocodone Bit/ Homatropine Methylb (Hycodan Liquid) 5 ml Q6H PRN PO COUGH Last administered on 10/29/18 04:32; Admin Dose 5 ML; Start 10/27/18 at 16:30 Gabapentin (Neurontin) 300 mg BID PO Last administered on 10/30/18 08:08; Admin Dose 300 MG; Start 10/28/18 at 23:00 Isosorbide Mononitrate (Imdur) 30 mg DAILY PO Last administered on 10/30/18 08:09; Admin Dose 30 MG; Start 10/29/18 at 09:00 Atorvastatin Calcium (Lipitor) 20 mg HS PO Last administered on 10/29/18at 20:45; Admin Dose 20 MG; Start 10/29/18 at 21:00 Levofloxacin (Levaquin) 250 mg DAILY@06 PO Last administered on 10/30/18 06:02; Admin Dose 250 MG; Start 10/30/18 at 06:00 Methylprednisolone Sodium Succinate (Solu-Medrol) 40 mg DAILY IV Last administered on 10/30/18at 08:10; Admin Dose 40 MG; Start 10/30/18 at 09:00 ALIE TOLEDO NP Oct 30, 2018 11:28
[2018-10-30 14:00] VITALS: BP 140/82; PULSE 70; RESP 17
[2018-10-30 20:09] VITALS: BP 128/58; PULSE 88; RESP 18
[2018-10-30] MEDS: ATORVASTATIN 20 MG TAB PO SCH (20:59)
[2018-10-30] MEDS: ZOLPIDEM 5 MG TAB PO PRN (21:13)
[2018-10-31] MEDS: ALBUTEROL/IPRATROPIUM (NEB) 3 ML AMP HHN SCH ×3 (01:16→13:25)
[2018-10-31 02:00] VITALS: BP 141/63; PULSE 77; RESP 20
[2018-10-31] MEDS: LEVOFLOXACIN 250 MG TAB PO SCH (06:12)
[2018-10-31] MEDS: INSULIN ASPART [NOVOLOG] 3 ML PEN SC SCH ×2 (08:00→11:51)
[2018-10-31 08:09] VITALS: BP 143/63; PULSE 77; RESP 17
[2018-10-31] MEDS: GABAPENTIN 300 MG CAP PO SCH (08:23)
[2018-10-31] MEDS: metFORMIN 500 MG TAB PO SCH ×2 (08:23→11:54)
[2018-10-31] MEDS: SENNA TAB PO SCH (08:23)
[2018-10-31] MEDS: CLOPIDOGREL 75 MG TAB PO SCH (08:23)
[2018-10-31] MEDS: METHYLPREDNISOLONE 40 MG INJ IV SCH (08:24)
[2018-10-31] MEDS: ISOSORBIDE MONONITRATE(SR)30 MG TAB PO SCH (08:24)
[2018-10-31] MEDS: ENOXAPARIN 30 MG/0.3 ML SYG SC SCH (08:27)
[2018-10-31] MEDS: NPH, HUMAN INSULIN ISOPHANE 3ML VIAL SC SCH (08:28)
[2018-10-31] MEDS ORDERED: IPRA3AMP29 HHN (10:50)
[2018-10-31] MEDS ORDERED: LEVO250T9 PO (10:50)
[2018-10-31] MEDS ORDERED: ALBU8.5H8 INH (10:50)
[2018-10-31] MEDS ORDERED: MED4DP PO (10:51)
--- NOTE | 2018-10-31 10:53 | DS ---
Date/Time of Note Date/Time of Note DATE: 10/31/18 TIME: 10:53 Discharge Summary Admission/Discharge Info Admit Date/Time Oct 27, 2018 at 08:31 Discharge Date/Time Patient Condition: Stable Home Meds Active Scripts Methylprednisolone* (Medrol* DOSE PACK) 4 Mg/Dose-Pack Tab.ds.pk, 4 MG PO . DIRECTED, #1 PACKET Prov:KEYONNA VÁZQUEZ 10/31/18 Ipratropium-Albuterol (Ipratropium-Albuterol) 0.5-3 Mg/3 Ml Ampul.neb, 3 ML HHN Q6H RESP THERAPY, #1 1 Refill Prov:KEYONNA VÁZQUEZ 10/31/18 Levofloxacin* (Levofloxacin*) 250 Mg Tablet, 250 MG PO DAILY@06 for 4 Days, TAB Prov:KEYONNA VÁZQUEZ 10/31/18 Albuterol Sulfate* (Proair HFA*) 8.5 Gm Hfa.aer.ad, 2 PUFF INH Q4, #1 INHALER 1 Refill Prov:KEYONNA VÁZQUEZ 10/31/18 Prednisone* (Prednisone*) 20 Mg Tab, 40 MG PO DAILY for 5 Days, TAB Prov:SABRINA LYLES MD 10/25/18 Hydroxyzine Hcl* (Hydroxyzine Hcl*) 25 Mg Tablet, 25 MG PO TID, #30 TAB Prov:SABRINA LYLES MD 10/25/18 Prednisone* (Prednisone*) 20 Mg Tab, 40 MG PO DAILY for 4 Days, TAB Start October 25, 2018 Prov:AVTAR SIERRA MD 10/24/18 Metoprolol Succinate* (Toprol XL*) 25 Mg Tab.sr.24h, 25 MG PO DAILY for CAD, HTN, #90 TAB Prov:MARINE CORRAL MD 02/14/15 Ticagrelor* (Brilinta*) 90 Mg Tablet, 90 MG PO BID, #60 Prov:MARINE CORRAL MD 02/14/15 Isosorbide Mononitrate* (Isosorbide Mononitrate*) 30 Mg Tabsr, 30 MG PO DAILY for Coronary artery disesae, HTN, #90 TAB Prov:MARINE CORRAL MD 02/14/15 Reported Medications [Insulin] No Conflict Check, 35 SC DAILY 06/09/18 Ranitidine Hcl* (Zantac*) 300 Mg Tablet, 300 MG PO HS, #30 TAB 06/09/18 [Dexilant] No Conflict Check, PO 08/04/17 Atorvastatin Calcium* (Atorvastatin Calcium*) 20 Mg Tablet, 20 MG PO QHS, #30 TAB 01/26/16 Metformin Hcl* (Metformin Hcl*) 500 Mg Tablet, 500 MG PO TID, TAB 09/26/14 Aspirin (Aspirin) 81 Mg Chew, 81 MG PO DAILY 01/05/13 Discontinued Scripts Azithromycin* (Zithromax*) 250 Mg Tablet, 250 MG PO .HeatherPACK DIRECTED, #6 TAB TAKE 500 MG (2 TABS) THE FIRST DAY THEN 250 MG (1 TAB) DAYS 2-5 Prov:AVTAR SIERRA MD 10/24/18 Follow-up Plan - FU with Primary x 1 week Call 911 or go to the nearst ER if symptoms get worse- Primary Care Provider Seferino Clark MD Pending Labs Laboratory Tests Test 10/30/18 12:04 10/30/18 17:07 10/30/18 21:02 10/31/18 08:21 Bedside 184 338 280 140 Glucose mg/dL (70-220) mg/dL (70-220) mg/dL (70-220) mg/dL (70-220) KEYONNA VÁZQUEZ Oct 31, 2018 10:53
== END 2018-10-31 14:10 | disposition home or self-care (01) | DRG 202 ==
LOC: FTE 00:23 → PP2 05:30 → OBSVTOIN 10-27 08:31
PROVIDERS: ADMIT Internal Medicine; ATTEND Internal Medicine
DX: J45.901 Unspecified asthma with (acute) exacerbation (principal); I50.30 Unspecified diastolic (congestive) heart failure; J44.0 Chronic obstructive pulmonary disease with (acute) lower respiratory infection; J20.9 Acute bronchitis, unspecified; I25.10 Atherosclerotic heart disease of native coronary artery without angina pectoris; E11.9 Type 2 diabetes mellitus without complications; K21.9 Gastro-esophageal reflux disease without esophagitis; E78.00 Pure hypercholesterolemia, unspecified; I11.0 Hypertensive heart disease with heart failure; Z95.5 Presence of coronary angioplasty implant and graft; Z87.891 Personal history of nicotine dependence; Z79.4 Long term (current) use of insulin
CPT/HCPCS: 36415; 71045; 80048; 80053; 82962; 83880; 84484; 85025; 87400; 93005; 93306; 94640; 94664; 94667; 96374; 96375; G0378; J0696; J1650; J1815; J2270; J2405; J2920; J2930

== ENCOUNTER 2019-02-02 09:11 | Emergency (ER) | payer MEDICARE, OTHER ==
[~2019-02-02] VITALS: Ht 154.9 cm; Wt 70.0 kg
[~2019-02-02 09:11] MED LIST changes: -AZIT250T PO; +CEPH-443 PO; +FLUC150T PO; +IBUP-1561 PO; +IPRA3AMP29 HHN; +LEVO250T9 PO; +MED4DP PO; +NITR-58 PO; +NPH10OT RIGHT EAR; +TRAM50TA2 PO
[2019-02-02 09:41] VITALS: Ht 154.9 cm; Wt 70.0 kg
[2019-02-02] MEDS ORDERED: SOD CHLORIDE 0.9% 1,000 ML IV STA (10:17)
[2019-02-02] MEDS ORDERED: KETOROLAC 15 MG INJ IV STA (11:02)
[2019-02-02] MEDS ORDERED: morphine 2 MG INJ IV STA (12:55)
[2019-02-02 13:24] VITALS: BP 155/69; PULSE 70; RESP 18
== END 2019-02-02 13:25 | disposition home or self-care (01) ==
LOC: FTE 09:11
DX: R10.2 Pelvic and perineal pain (principal); I10 Essential (primary) hypertension; J45.909 Unspecified asthma, uncomplicated; R30.0 Dysuria; E11.9 Type 2 diabetes mellitus without complications; Z79.82 Long term (current) use of aspirin; Z79.84 Long term (current) use of oral hypoglycemic drugs; Z98.61 Coronary angioplasty status
CPT/HCPCS: 36415; 74176; 80053; 81003; 83690; 85025; 87086; 96361; 96374; 96375; 99285; J1885; J2270; J7030